=== PATIENT | female | born 1995 | race Caucasian/White ===

== ENCOUNTER 2016-07-24 21:09 | Emergency (ER) | payer OTHER ==
--- NOTE | 2016-07-24 21:38 | ERPHSYRPT ---
- History of Present Illness Time Seen by Provider: 07/24/16 21:20 Historian: patient Exam Limitations: clinical condition Patient Subjective Stated Complaint: Pt sts 2 positive tests at home, LMP 06/04/16, . Sts light pink tinged discharge. Also sts pain in upper back and upper abd that is constant. Denies painful urination, burning with urianaion. Triage Nursing Assessment: Pt alert, oriented, answers all questions appropriately. Skin p/w/d, resps non-labored. Pt ambulatory to tx room, steady gait noted. Physician History: PATIENT COMPLAINS OF VAGINAL BLEEDING WHILE CLEANING HERSELF WITH TISSUE, TODAY. HAS ASSOCIATED UPPER,AND EPIGASTRIC PAINS THROUGHOUT THE DAY. DENIES NAUSEA, EMESIS OR DIARRHEA. PATIENT HAS HAD 2 POSITIVE URINE TEST. Timing/Duration: today Activities at Onset: none Abdominal Pain Onset Location: epigastric Pain Radiation: no radiation Severity of Pain-Max: moderate Severity of Pain-Current: moderate Previous symptoms: no prior history Allergies/Adverse Reactions: No Known Drug Allergies Allergy (Unverified 08/07/15 22:55) Hx Tetanus, Diphtheria Vaccination/Date Given: Yes Hx Influenza Vaccination/Date Given: Yes Hx Pneumococcal Vaccination/Date Given: No - Review of Systems Constitutional: No Fever, No Chills Eyes: No Symptoms Ears, Nose, & Throat: No Symptoms Respiratory: No Symptoms, No Cough, No Dyspnea Cardiac: No Symptoms, No Chest Pain, No Edema, No Syncope Abdominal/Gastrointestinal: Abdominal Pain, No Nausea, No Vomiting, No Diarrhea Genitourinary Symptoms: No Dysuria Musculoskeletal: No Symptoms, No Back Pain, No Neck Pain Skin: No Symptoms, No Rash Neurological: No Symptoms, No Dizziness, No Focal Weakness, No Sensory Changes Psychological: No Symptoms Endocrine: No Symptoms All Other Systems: Reviewed and Negative - Past Medical History Pertinent Past Medical History: Yes Psycho-Social History: Anxiety, Depression - Past Surgical History Past Surgical History: Yes Other Surgical History: stented kindney unknown which at [facility] [place] - Social History Smoking Status: Never smoker Exposure to second hand smoke: No Drug Use: none Patient Lives Alone: No - Female History Hx Last Menstrual Period: 06/04/16 - Nursing Vital Signs Nursing Vital Signs: Initial Vital Signs Temperature 97.8 F Pulse Rate 117 Respiratory Rate 18 Blood Pressure [Right Arm] 109/65 Pain Intensity 6 - Physical Exam General Appearance: no apparent distress, alert Eye Exam: PERRL/EOMI, eyes nml inspection Ears, Nose, Throat Exam: normal ENT inspection, pharynx normal, moist mucous membranes Neck Exam: normal inspection, non-tender, supple, full range of motion Respiratory Exam: normal breath sounds, lungs clear, No respiratory distress Cardiovascular Exam: regular rate/rhythm, normal heart sounds Gastrointestinal/Abdomen Exam: soft, normal bowel sounds, tenderness (SUPERIOR EPIGASTRIC TENDERNESS), No mass Back Exam: normal inspection, normal range of motion, No CVA tenderness, No vertebral tenderness Extremity Exam: normal inspection, normal range of motion, pelvis stable Neurologic Exam: alert, oriented x 3, cooperative, normal mood/affect, nml cerebellar function, sensation nml, No motor deficits Skin Exam: normal color, warm, dry SpO2 Interpretation: normal SpO2: 98 Oxygen Delivery: Room Air - CT Exams Abdomen/Pelvis CT Interpretation: Tele-radiologist Report (NO ACUTE FINDINGS) Ordered Tests: Active Orders 24 hr Category Date Time Status IV Insertion STAT Care 07/24/16 22:08 Active ABDOMEN AND PELVIS W CONTRAST [CT] Stat Exams 07/24/16 23:09 Taken AMYLASE Stat Lab 07/24/16 22:03 Completed CBC W DIFF Stat Lab 07/24/16 22:03 Completed CMP Stat Lab 07/24/16 22:03 Completed HCG, Quantitative (Inhouse) Stat Lab 07/24/16 22:03 Completed LIPASE Stat Lab 07/24/16 22:03 Completed UA W/ MICROSCOPIC Stat Lab 07/24/16 22:03 Completed Medication Summary Generic Name Dose Route Start Last Admin Trade Name Freq PRN Reason Stop Dose Admin Sodium Chloride 1,000 mls @ 250 mls/hr 07/24/16 23:15 07/24/16 23:21 Sodium Chloride 0.9% 1000 Ml IV 08/23/16 23:14 250 mls/hr .Q4H KIM Administration Lab/Rad Data: Laboratory Result Diagrams 07/24/16 22:03 07/24/16 22:03 Laboratory Results 07/24/16 07/24/16 07/24/16 Range/Units 22:03 22:03 22:03 WBC (4.0-10.5) K/mm3 RBC (4.1-5.4) M/mm3 Hgb (12.0-16.0) gm/dl Hct (35-47) % MCV (78-100) fl MCH (26-32) pg MCHC (32-36) g/dl RDW (11.5-14.0) % Plt Count (150-450) K/mm3 MPV (6-9.5) fl Gran % (36.0-66.0) % Lymphocytes % (24.0-44.0) % Monocytes % (0.0-12.0) % Eosinophils % (0.00-5.0) % Basophils % (0.0-0.4) % Basophils # (0-0.4) Sodium 139 (136-145) mEq/L Potassium 3.6 (3.5-5.1) mEq/L Chloride 103 (98-107) mEq/L Carbon Dioxide 23.9 (21-32) mEq/L Anion Gap 15.6 H (5-15) MEQ/L BUN 10 (9-20) mg/dL Creatinine 1.12 (0.55-1.30) mg/dl Estimated GFR > 60 ML/MIN Glucose 153 H (70-110) MG/DL Calcium 9.0 (8.5-10.1) mg/dL Total Bilirubin 0.1 L (0.2-1.0) mg/dL AST 4 L (15-37) U/L ALT 33 (12-78) U/L Alkaline Phosphatase 93 (46-116) U/L Serum Total Protein 7.9 (6.4-8.2) gm/dL Albumin 3.6 (3.4-5.0) g/dL Amylase 43 (25-115) U/L Lipase 172 (73-393) U/L Beta HCG, Quant < 1.0 (0-6) IU/L Ur Collection Type CLEAN CATCH Urine Color YELLOW (YELLOW) Urine Appearance CLEAR (CLEAR) Urine pH 7.0 (5-6) Ur Specific Fielding 1.020 (1.005-1.025) Urine Protein NEGATIVE (Negative) Urine Glucose (UA) NEGATIVE (NEGATIVE) mg/dL Urine Ketones NEGATIVE (NEGATIVE) Urine Nitrite NEGATIVE (NEGATIVE) Urine Bilirubin NEGATIVE (NEGATIVE) Urine Urobilinogen 0.2 (0-1) mg/dL Urine WBC (Auto) NEGATIVE (NEGATIVE) Urine RBC (Auto) LARGE (0-5) Anthony/ul Urine Microscopic RBC 25-50 (0-2) /HPF Ur Epithelial Cells FEW (FEW) /HPF Urine Bacteria RARE (NEGATIVE) /HPF Specimen Received [id number] 07/24/16 Range/Units 22:03 WBC 14.0 H (4.0-10.5) K/mm3 RBC 4.77 (4.1-5.4) M/mm3 Hgb 12.6 (12.0-16.0) gm/dl Hct 39.6 (35-47) % MCV 83.0 (78-100) fl MCH 26.4 (26-32) pg MCHC 31.8 L (32-36) g/dl RDW 13.9 (11.5-14.0) % Plt Count 407 (150-450) K/mm3 MPV 8.7 (6-9.5) fl Gran % 60.4 (36.0-66.0) % Lymphocytes % 31.9 (24.0-44.0) % Monocytes % 5.9 (0.0-12.0) % Eosinophils % 1.6 (0.00-5.0) % Basophils % 0.2 (0.0-0.4) % Basophils # 0.03 (0-0.4) Sodium (136-145) mEq/L Potassium (3.5-5.1) mEq/L Chloride (98-107) mEq/L Carbon Dioxide (21-32) mEq/L Anion Gap (5-15) MEQ/L BUN (9-20) mg/dL Creatinine (0.55-1.30) mg/dl Estimated GFR ML/MIN Glucose (70-110) MG/DL Calcium (8.5-10.1) mg/dL Total Bilirubin (0.2-1.0) mg/dL AST (15-37) U/L ALT (12-78) U/L Alkaline Phosphatase (46-116) U/L Serum Total Protein (6.4-8.2) gm/dL Albumin (3.4-5.0) g/dL Amylase (25-115) U/L Lipase (73-393) U/L Beta HCG, Quant (0-6) IU/L Ur Collection Type Urine Color (YELLOW) Urine Appearance (CLEAR) Urine pH (5-6) Ur Specific Fielding (1.005-1.025) Urine Protein (Negative) Urine Glucose (UA) (NEGATIVE) mg/dL Urine Ketones (NEGATIVE) Urine Nitrite (NEGATIVE) Urine Bilirubin (NEGATIVE) Urine Urobilinogen (0-1) mg/dL Urine WBC (Auto) (NEGATIVE) Urine RBC (Auto) (0-5) Anthony/ul Urine Microscopic RBC (0-2) /HPF Ur Epithelial Cells (FEW) /HPF Urine Bacteria (NEGATIVE) /HPF Specimen Received - Progress Counseled pt/family regarding: lab results, diagnosis, need for follow-up - Departure Time of Disposition: 01:05 Departure Disposition: Home Clinical Impression: ABDOMINAL PAIN Condition: Stable Critical Care Time: No Additional Instructions: PEPCID 20MG TWICE DAILY FOR 2 WEEKS. CONSULT YOUR FAMILY PHYSICIAN FOR EVALUATION IN 1 WEEK. Prescriptions: Famotidine 20 mg [Pepcid 20 MG] 20 mg PO BID #30 tablet
[2016-07-24 22:06] LABS: BASOPHIL % 0.2 % (0.0-0.4); Eosinophil % 1.6 % (0.00-5.0); Granulocytes % 60.4 % (36.0-66.0); Lymphocytes % 31.9 % (24.0-44.0); Mean Corpuscular Hemoglobin 26.4 pg (26-32); Mean Platelet Volume 8.7 fl (6-9.5); Monocytes % 5.9 % (0.0-12.0); Platelet Count 407 K/mm3 (150-450); Red Blood Count 4.77 M/mm3 (4.1-5.4); Red Cell Distribution Width 13.9 % (11.5-14.0)
[2016-07-24 22:24] LABS: COMPLETE URINE MICROSCOPIC? YES; Collection Type CLEAN CATCH
[2016-07-24 22:25] LABS: Bacteria RARE /HPF (NEGATIVE); Epithelial Cells FEW /HPF (FEW)
[2016-07-24 22:33] LABS: ALBUMIN 3.6 g/dL (3.4-5.0); ALKALINE PHOSPHATASE 93 U/L (46-116); ANION GAP 15.6 MEQ/L (5-15); BILIRUBIN,TOTAL 0.1 mg/dL (0.2-1.0); BLOOD UREA NITROGEN 10 mg/dL (9-20); CHLORIDE 103 mEq/L (98-107); Carbon Dioxide 23.9 mEq/L (21-32); Glucose 153 MG/DL (70-110); Potassium 3.6 mEq/L (3.5-5.1); SGOT/AST 4 U/L (15-37); SGPT/ALT 33 U/L (12-78); SODIUM 139 mEq/L (136-145); Total Protein 7.9 gm/dL (6.4-8.2)
[2016-07-24 22:57] LABS: LIPASE 172 U/L (73-393)
[2016-07-24] MEDS ORDERED: Sodium Chloride 0.9% 1000 ML 1,000 ML IV SCH (23:15)
[2016-07-24] MEDS ORDERED: Sodium Chloride 0.9% 1000 ML 1,000 ML ONE (23:19)
[2016-07-25 01:33] VITALS: BP 112/78; PULSE 108; O2SAT 100
--- NOTE | 2016-07-25 09:16 | XRAY ---
Indication: Abdominal pain. Leukocytosis. Congenitally small left kidney. Multiple contiguous axial images obtained through the abdomen and pelvis using 80 cc Isovue 370 contrast only. Comparison: None Lung bases essentially clear. Heart is not enlarged. Stomach is distended with food. Noncontrasted bowel loops appear nonobstructed. Normal appendix. Tiny cul-de-sac fluid presumed from ruptured/leaking cyst. No walled off fluid collection or free air. Left kidney is slightly smaller than the right. Remaining liver, gallbladder, pancreas, spleen, adrenal glands, kidneys, ureters, bladder, uterus, and aorta appear normal in CT appearance and attenuation. No pathologic retroperitoneal lymphadenopathy. Osseous structures intact. Impression: 1. Tiny cul-de-sac fluid presumed from ruptured/leaking cyst. 2. No acute intra-abdominal/pelvic abnormalities. Comment: Preliminary interpretation was made by [facility]. No critical discrepancy. CT DI 28.13
== END 2016-07-25 01:35 | disposition home or self-care (01) ==
LOC: ED 21:09
DX: R10.9 Unspecified abdominal pain (principal); R10.13 Epigastric pain
CPT/HCPCS: 36000; 36415; 74177; 80053; 81000; 82150; 83690; 84702; 85025; 96360; 96361; 99284

== ENCOUNTER 2016-08-08 22:37 | Emergency (ER) | payer OTHER ==
--- NOTE | 2016-08-08 23:06 | ERPHSYRPT ---
- History of Present Illness Time Seen by Provider: 08/08/16 22:55 Source: patient Exam Limitations: no limitations Patient Subjective Stated Complaint: pt states she woke up with shortness of breath. states she has also been having some nonradiating midsternal chest pain that goes thru to her back. Triage Nursing Assessment: pt alert and oriented, answers questions approp. pt ambualtory with steady gait ntoed. respirations labored and shallow upon arrival. respirations 20 and normal depth at this time. lungs cta. sinus tach on monitor. heart rate 87 on monitor. Physician History: 20-year-old white female arrives with complaint of substernal chest pain described as sharp worse with breathing associated with shortness of breath onset for 30 minutes occurred when patient woke up from sleep. No nausea no vomiting no abdominal pain patient does state that she has not had a period in 4 months. Past medical history shows anxiety and depression in the old chart patient denies this. Patient states she had a stented kidney has an infant for ureteral reflux. Timing/Duration: today (30 minutes ago) Severity: moderate Modifying Factors: Improves With: nothing Associated Symptoms: shortness of breath, chest pain (sharp pain radiating to back worse with deep breathing), No nausea, No vomiting, No abdominal pain, No heartburn, No diaphoresis, No cough, No chills Allergies/Adverse Reactions: No Known Drug Allergies Allergy (Verified 08/08/16 22:53) Home Medications: No Home Meds 1 ea UD 08/08/16 [History] Hx Tetanus, Diphtheria Vaccination/Date Given: Yes Hx Influenza Vaccination/Date Given: Yes Hx Pneumococcal Vaccination/Date Given: No Immunizations Up to Date: Yes - Review of Systems Constitutional: No Fever, No Chills Eyes: No Symptoms Ears, Nose, & Throat: No Symptoms Respiratory: Dyspnea, Other (pain sternal area with deep breathing), No Cough, No Cyanosis, No Dyspnea on Exertion (MAXWELL), No Stridor, No Wheezing Cardiac: Chest Pain (Pain sternal area radiating to back with deep breathing), No Edema, No Palpitations, No Orthopnea, No PND, No Other Abdominal/Gastrointestinal: No Abdominal Pain, No Nausea, No Vomiting, No Diarrhea Genitourinary Symptoms: No Dysuria Musculoskeletal: No Back Pain, No Neck Pain Skin: No Rash Neurological: No Dizziness, No Focal Weakness, No Sensory Changes Psychological: No Symptoms Endocrine: No Symptoms All Other Systems: Reviewed and Negative - Past Medical History Pertinent Past Medical History: Yes Psycho-Social History: Anxiety, Depression - Past Surgical History Past Surgical History: Yes Other Surgical History: stented kindney unknown which at infancy - Social History Smoking Status: Never smoker Exposure to second hand smoke: Yes Drug Use: none Patient Lives Alone: No - Female History Hx Last Menstrual Period: recent miscarriage - Nursing Vital Signs Nursing Vital Signs: Initial Vital Signs Temperature 97.3 F Temperature Source Oral Pulse Rate 89 Respiratory Rate 21 Blood Pressure [] 114/61 Pain Intensity 4 - Physical Exam General Appearance: no apparent distress, alert Eye Exam: PERRL/EOMI, eyes nml inspection Ears, Nose, Throat Exam: normal ENT inspection, TMs normal, pharynx normal, moist mucous membranes Neck Exam: normal inspection, non-tender, supple, full range of motion Respiratory Exam: lungs clear, airway intact, other (patient appears to be breathing normally when talking and during interview however when patient asked to take she takes several intermittent small breaths during inspiration states she has pain in her sternal region), No respiratory distress, No diminished breath sounds, No accessory muscle use, No prolonged expirations, No crackles/ rales, No rhonchi, No wheezing, No stridor, No pleural rub Cardiovascular Exam: regular rate/rhythm, normal heart sounds, normal peripheral pulses Gastrointestinal/Abdomen Exam: soft, normal bowel sounds, No tenderness, No mass Back Exam: normal inspection, normal range of motion, No CVA tenderness, No vertebral tenderness Extremity Exam: normal inspection, normal range of motion, pelvis stable Neurologic Exam: alert, oriented x 3, cooperative, normal mood/affect, nml cerebellar function, nml station & gait, sensation nml, No motor deficits Skin Exam: normal color, warm, dry, No rash Lymphatic Exam: No adenopathy SpO2 Interpretation: normal (99%) SpO2: 99 Oxygen Delivery: Room Air - Course Nursing assessment & vital signs reviewed: Yes EKG Interpreted by Me: RATE (105 bpm), Sinus Tach, NORMAL AXIS, Other (EKG, sinus tachycardia, 105 beats per minute, normal axis, RSV are prime in leads f and aVL, no acute ST or T wave changes n no acute changes as compared toApril 2015) - Radiology Exams Chest X-ray Interpretation: Interpreted by me, Negative, No Pneumonia, No Pneumothorax Ordered Tests: Active Orders 24 hr Category Date Time Status House Calls Nurse STAT Care 08/08/16 22:59 Active EKG-ER Only STAT Care 08/08/16 22:59 Active IV Insertion STAT Care 08/08/16 23:01 Active Pulse Oximetry (ED) STAT Care 08/08/16 22:59 Active Re-Check Vital Signs STAT Care 08/08/16 22:59 Active CHEST 1 VIEW (PORTABLE) Stat Exams 08/08/16 23:00 Taken AMYLASE Stat Lab 08/08/16 22:55 Completed CBC W DIFF Stat Lab 08/08/16 22:55 Completed CMP Stat Lab 08/08/16 22:55 Completed D-DIMER QUANTITATION Stat Lab 08/08/16 22:55 Completed HCG QUALITATIVE,SERUM Stat Lab 08/08/16 22:55 Completed LIPASE Stat Lab 08/08/16 22:55 Completed Manual Differential NC Stat Lab 08/08/16 22:55 Completed TROPONIN Q3H Lab 08/08/16 23:00 Completed TROPONIN Q3H Lab 08/09/16 02:00 Ordered TROPONIN Q3H Lab 08/09/16 05:00 Ordered TROPONIN Q3H Lab 08/09/16 08:00 Ordered TROPONIN Q3H Lab 08/09/16 11:00 Ordered Lab/Rad Data: Laboratory Result Diagrams 08/08/16 22:55 08/08/16 22:55 Laboratory Results 08/08/16 08/08/16 08/08/16 Range/Units 23:00 22:55 22:55 WBC (4.0-10.5) K/mm3 RBC (4.1-5.4) M/mm3 Hgb (12.0-16.0) gm/dl Hct (35-47) % MCV (78-100) fl MCH (26-32) pg MCHC (32-36) g/dl RDW (11.5-14.0) % Plt Count (150-450) K/mm3 MPV (6-9.5) fl Segmented Neutrophils (36.0-66.0) % Band Neutrophils (0.0-2.0) % Lymphocytes (Manual) (24-44) % Monocytes (Manual) (0.0-12.0) % Eosinophils (Manual) (0.00-3.0) % Differential Comment Platelet Estimate (NORMAL) D-Dimer 0.250 (0.00-0.49) mg/L Sodium (136-145) mEq/L Potassium (3.5-5.1) mEq/L Chloride (98-107) mEq/L Carbon Dioxide (21-32) mEq/L Anion Gap (5-15) MEQ/L BUN (9-20) mg/dL Creatinine (0.55-1.30) mg/dl Estimated GFR ML/MIN Glucose (70-110) MG/DL Calcium (8.5-10.1) mg/dL Total Bilirubin (0.2-1.0) mg/dL AST (15-37) U/L ALT (12-78) U/L Alkaline Phosphatase (46-116) U/L Troponin I < 0.017 (0.000-0.056) ng/ml Serum Total Protein (6.4-8.2) gm/dL Albumin (3.4-5.0) g/dL Amylase (25-115) U/L Lipase (73-393) U/L Serum , Qual NEGATIVE (Negative) 08/08/16 08/08/16 Range/Units 22:55 22:55 WBC 15.5 H (4.0-10.5) K/mm3 RBC 4.67 (4.1-5.4) M/mm3 Hgb 12.4 (12.0-16.0) gm/dl Hct 38.3 (35-47) % MCV 82.0 (78-100) fl MCH 26.6 (26-32) pg MCHC 32.4 (32-36) g/dl RDW 13.8 (11.5-14.0) % Plt Count 426 (150-450) K/mm3 MPV 8.9 (6-9.5) fl Segmented Neutrophils 46 (36.0-66.0) % Band Neutrophils 2 (0.0-2.0) % Lymphocytes (Manual) 47 H (24-44) % Monocytes (Manual) 4 (0.0-12.0) % Eosinophils (Manual) 1 (0.00-3.0) % Differential Comment NORMAL Platelet Estimate NORMAL (NORMAL) D-Dimer (0.00-0.49) mg/L Sodium 142 (136-145) mEq/L Potassium 3.2 L (3.5-5.1) mEq/L Chloride 103 (98-107) mEq/L Carbon Dioxide 24.5 (21-32) mEq/L Anion Gap 17.4 H (5-15) MEQ/L BUN 11 (9-20) mg/dL Creatinine 1.34 H (0.55-1.30) mg/dl Estimated GFR 54 ML/MIN Glucose 135 H (70-110) MG/DL Calcium 9.5 (8.5-10.1) mg/dL Total Bilirubin 0.2 (0.2-1.0) mg/dL AST 16 (15-37) U/L ALT 30 (12-78) U/L Alkaline Phosphatase 90 (46-116) U/L Troponin I (0.000-0.056) ng/ml Serum Total Protein 7.7 (6.4-8.2) gm/dL Albumin 3.6 (3.4-5.0) g/dL Amylase 41 (25-115) U/L Lipase 157 (73-393) U/L Serum , Qual (Negative) - Progress Progress: improved Progress Note: 08/09/16 00:28 This is a 20-year-old white female she arrives with complaint of sharp anterior sternal pain worse with breathing symptoms since approximately 30 minutes prior to arrival. This began while the patient was laying down. Patient has a normal EKG troponin within normal limits white count slightly elevated chest x-ray unremarkable chemistry is unremarkable. Patient was concerned that she might be she states she had not had a period since 4 months. Patient appeared to be stable her pain appeared to be pleuritic I told the patient that we would want to see her hCG prior to any of nonsteroidals on this patient. HCG is negative patient currently states she has occasional intermittent pain in her anterior chest she has been stable blood pressure has been stable EKG no acute changes (chronic interventricular conduction delay which is not changed from previous no acute ST or T wave changes. I've come back and told the patient her findings have offered to give the patient Toradol for pain she states that she would prefer to go home and take Advil or Aleve at home. Will discharge patient please note patient was offered repeat troponin 3 hours after last draw she declined this stated that she did not want to wait for this I told her that this would be advisable to completely rule out cardiac etiology of her pain. .. 08/09/16 00:31 - Departure Time of Disposition: 00:30 Departure Disposition: Home Clinical Impression: Non-cardiac chest pain, Pleurisy Condition: Fair Critical Care Time: No Instructions: Chronic Obstructive Pulmonary Disease Additional Instructions: Return home. Plenty of fluids. Advil [id number] every 6 hours as needed for pain. Follow-up with your family doctor. Return for acute distress or for severe symptoms. Your x-rays have been preliminarily read they will be reread tomorrow will be contacted if any discrepancies are noted
[2016-08-08 23:12] LABS: Mean Corpuscular Hemoglobin 26.6 pg (26-32); Mean Platelet Volume 8.9 fl (6-9.5); Platelet Count 426 K/mm3 (150-450); Red Blood Count 4.67 M/mm3 (4.1-5.4); Red Cell Distribution Width 13.8 % (11.5-14.0); White Blood Count 15.5 K/mm3 (4.0-10.5)
[2016-08-08 23:36] LABS: ALBUMIN 3.6 g/dL (3.4-5.0); ANION GAP 17.4 MEQ/L (5-15); BILIRUBIN,TOTAL 0.2 mg/dL (0.2-1.0); Carbon Dioxide 24.5 mEq/L (21-32); Potassium 3.2 mEq/L (3.5-5.1); Total Protein 7.7 gm/dL (6.4-8.2)
[2016-08-09 00:20] LABS: BAND 2 % (0.0-2.0); Eosinophil 1 % (0.00-3.0); Platelet Estimate NORMAL (NORMAL); Total Cells Counted 100
[2016-08-09 00:42] VITALS: BP 102/65; PULSE 77; O2SAT 96
--- NOTE | 2016-08-09 09:01 | XRAY ---
Indication: Chest pain. Comparison: August 12, 2015. Portable chest again demonstrates normal heart, lungs, and bony thorax.
== END 2016-08-09 00:43 | disposition home or self-care (01) ==
LOC: ED 22:37
DX: R07.89 Other chest pain (principal); R09.1 Pleurisy; R06.02 Shortness of breath
CPT/HCPCS: 36000; 36415; 71010; 80053; 82150; 83690; 84484; 84703; 85025; 85379; 93005; 93041; 99284

== ENCOUNTER 2018-01-02 17:01 | Observation (INO) | payer OTHER ==
--- NOTE | 2018-01-02 18:19 | ERPHSYRPT ---
- History of Present Illness Source: patient, family Exam Limitations: no limitations Patient Subjective Stated Complaint: pt was dx with bronchitis on sunday and was given antibotic and steriod, Triage Nursing Assessment: pt co pain to center of chest, sob, pain worse with a deep breath, pt is coughing up pink tinged sputum since sunday. no fever today , Timing/Duration: week(s) (1), gradual onset, worse Cough Quality/Degree: productive cough, sputum Possible Cause: no prior episodes Modifying Factors: Improves With: albuterol inhaler, coughing, deep breath Associated Symptoms: fever, chills, cough, shortness of breath, wheezing, No nasal congestion, No sore throat Hx Tetanus, Diphtheria Vaccination/Date Given: Yes Hx Influenza Vaccination/Date Given: Yes Hx Pneumococcal Vaccination/Date Given: No Immunizations Up to Date: Yes <ELLI LEDESMA - Last Filed: 01/02/18 18:58> <EMILY CHAVIRA - Last Filed: 01/02/18 22:20> - History of Present Illness Time Seen by Provider: 01/02/18 18:18 Physician History: The patient is a 22-year-old obese female with her mother complaining that she has a cough and chest pain with cough and breathing for about one week. She was seen at [facility] on Sunday (3 days ago) for the same complaint. I have reviewed the notes and [facility]. The diagnosis was bronchitis. She was given levofloxacin 700 mg daily, albuterol inhaler, and prednisone 20 mg 2 times a day for 5 days. She had been wheezing earlier but now states her wheezing has improved. She feels like she has had a fever but did not take her temperature. Before going to [place], she had pink tinged sputum with coughing. The sputum is now normal color. She states that at times she has difficulty breathing. She has not received her influenza vaccination this year. She is on oral control. Her past medical history is significant for an atretic kidney as a . She does not smoke nor drink. (ELLI LEDESMA) Allergies/Adverse Reactions: No Known Drug Allergies Allergy (Verified 01/02/18 17:08) Home Medications: No Home Meds [No Home Meds] 1 ea UD 08/08/16 [History] Norgestimate-Ethinyl Estradiol [Tri-Sprintec] 1 tab DAILY 01/02/18 [History] Prednisone 20 mg [Deltasone 20 mg] 20 mg DAILY 01/02/18 [History] levoFLOXacin [Levofloxacin] 750 mg DAILY 01/02/18 [History] - Review of Systems Constitutional: No Fever, No Chills Eyes: No Symptoms Ears, Nose, & Throat: No Symptoms Respiratory: Cough, Dyspnea, Wheezing Cardiac: Chest Pain Abdominal/Gastrointestinal: No Abdominal Pain, No Nausea, No Vomiting, No Diarrhea Genitourinary Symptoms: No Dysuria Musculoskeletal: No Back Pain, No Neck Pain Skin: No Rash Neurological: No Dizziness, No Focal Weakness, No Sensory Changes Psychological: No Symptoms Endocrine: No Symptoms Hematologic/Lymphatic: No Symptoms Immunological/Allergic: No Symptoms All Other Systems: Reviewed and Negative <ELLI LEDESMA - Last Filed: 01/02/18 18:58> - Past Medical History Pertinent Past Medical History: Yes Respiratory History: Bronchitis Psycho-Social History: Anxiety, Depression - Past Surgical History Past Surgical History: Yes Other Surgical History: kidney surgery - Social History Smoking Status: Never smoker Exposure to second hand smoke: No Drug Use: none Patient Lives Alone: No - Female History Hx Last Menstrual Period: 2 days ago Hx Now: No <ELLI LEDESMA - Last Filed: 01/02/18 18:58> - Physical Exam General Appearance: no apparent distress, alert Eye Exam: PERRL/EOMI, eyes nml inspection Ears, Nose, Throat Exam: normal ENT inspection, TMs normal, pharynx normal, moist mucous membranes Neck Exam: normal inspection, non-tender, supple, full range of motion Respiratory Exam: rhonchi, No prolonged expirations, No wheezing Cardiovascular Exam: normal heart sounds, tachycardia Gastrointestinal/Abdomen Exam: soft, No tenderness Pelvic Exam: not done Rectal Exam: not done Back Exam: normal inspection, No CVA tenderness, No vertebral tenderness Extremity Exam: normal inspection, normal range of motion Neurologic Exam: alert, oriented x 3, cooperative, normal mood/affect, sensation nml, No motor deficits Skin Exam: normal color, warm, dry, No rash Lymphatic Exam: No adenopathy SpO2 Interpretation: normal SpO2: 96 Oxygen Delivery: Room Air <ELLI LEDESMA - Last Filed: 01/02/18 18:58> - Nursing Vital Signs Nursing Vital Signs: Initial Vital Signs Temperature 98.3 F 01/02/18 17:02 Pulse Rate 100 H 01/02/18 17:02 Respiratory Rate 16 01/02/18 17:02 Blood Pressure 143/108 01/02/18 17:02 O2 Sat by Pulse Oximetry 96 01/02/18 17:02 Pain Scale Pain Intensity 5 - Course EKG Interpreted by Me: RATE, Sinus Tach, NORMAL AXIS, NORMAL INTERVALS, NORMAL QRS, NORMAL ST-T <ELLI LEDESMA - Last Filed: 01/02/18 18:58> - Course Nursing assessment & vital signs reviewed: Yes EKG Interpreted by Me: Other (repeat Ek:21 PM: sinus tachycardia, unchanged , negative except rate.) - Radiology Exams Chest X-ray Interpretation: Interpreted by me, Negative <EMILY CHAVIRA - Last Filed: 01/02/18 22:20> Ordered Tests: Active Orders 24 hr Category Date Time Status Heel Coverer STAT Care 01/02/18 18:51 Active Cold Application STAT Care 01/02/18 17:41 Active EKG-ER Only STAT Care 01/02/18 18:49 Active EKG-ER Only STAT Care 01/02/18 21:02 Active IV Insertion STAT Care 01/02/18 18:49 Active Pulse Oximetry (ED) STAT Care 01/02/18 18:49 Active CHEST 2 VIEWS (PA AND LAT) Stat Exams 01/02/18 18:50 Taken CBC W DIFF Stat Lab 01/02/18 19:15 Completed CMP Stat Lab 01/02/18 19:15 Completed CULTURE,SPUTUM Stat Lab 01/02/18 18:50 Uncollected CULTURE,URINE Stat Lab 01/02/18 20:41 Received D-DIMER QUANTITATION Stat Lab 01/02/18 19:15 Completed HCG,QUALITATIVE URINE Stat Lab 01/02/18 20:41 Completed Lactic Acid Stat Lab 01/02/18 19:20 Completed Lactic Acid Stat Lab 01/02/18 22:00 Results Manual Differential NC Stat Lab 01/02/18 19:15 Completed NT PRO BNP Stat Lab 01/02/18 19:15 Completed TROPONIN Q3H Lab 01/02/18 19:15 Completed TROPONIN Q3H Lab 01/02/18 22:00 Received TROPONIN Q3H Lab 01/03/18 01:00 Ordered TROPONIN Q3H Lab 01/03/18 04:00 Ordered TROPONIN Q3H Lab 01/03/18 07:00 Ordered UA W/RFX UR CULTURE Stat Lab 01/02/18 20:41 Completed Urine Triage Profile Stat Lab 01/02/18 20:41 Completed Respiratory Nebulizer STAT RT 01/02/18 18:52 Completed Respiratory Therapy Assessment ASORD RT 01/02/18 20:32 Completed Medication Summary Discontinued Medications Generic Name Dose Route Start Last Admin Trade Name [place] PRN Reason Stop Dose Admin Albuterol Sulfate 2.5 mg 01/02/18 18:49 01/02/18 19:04 Proventil 2.5 Mg/3 Ml Neb IH 01/02/18 18:50 2.5 mg STAT ONE Administration Albuterol Sulfate Confirm 01/02/18 19:04 Proventil 2.5 Mg/3 Ml Neb Administered 01/02/18 19:05 Dose 2.5 mg IH .STK-MED ONE Fentanyl Citrate 75 mcg 01/02/18 20:18 01/02/18 20:28 Sublimaze 100 Mcg/2 Ml IV 01/02/18 20:19 Not Given STAT ONE Fentanyl Citrate Confirm 01/02/18 20:22 Sublimaze 100 Mcg/2 Ml Administered 01/02/18 20:23 Dose 100 mcg .ROUTE .STK-MED ONE Sodium Chloride 1,000 mls @ 999 mls/hr 01/02/18 20:17 01/02/18 20:24 Sodium Chloride 0.9% 1000 Ml IV 01/02/18 21:17 999 mls/hr .Q1H1M STA Administration Sodium Chloride Confirm 01/02/18 20:18 Sodium Chloride 0.9% 1000 Ml Administered 01/02/18 20:19 Dose 1,000 mls @ ud .ROUTE .STK-MED ONE Ceftriaxone Sodium/Dextrose 1 g in 50 mls @ 100 mls/hr 01/02/18 21:15 21:24 Rocephin 1 Gm-D5w 50 Ml Bag IV 01/02/18 21:44 100 ml/hr STAT STA 100 mls/hr Administration Ceftriaxone Sodium/Dextrose Confirm 01/02/18 21:19 Rocephin 1 Gm-D5w 50 Ml Bag Administered 01/02/18 21:20 Dose 1 g in 50 mls @ ud IV .STK-MED ONE Ketorolac Tromethamine 30 mg 01/02/18 18:53 01/02/18 19:04 Toradol 30 Mg Injection IV 01/02/18 18:54 30 mg STAT ONE Administration Ketorolac Tromethamine Confirm 01/02/18 19:03 Toradol 30 Mg Injection Administered 01/02/18 19:04 Dose 30 mg .ROUTE .STK-MED ONE Lorazepam 0.5 mg 01/02/18 20:49 01/02/18 21:23 Ativan 2 Mg/1 Ml Vial IV 01/02/18 20:50 0.5 mg STAT ONE Administration Lorazepam Confirm 01/02/18 21:19 Ativan 2 Mg/1 Ml Vial Administered 01/02/18 21:20 Dose 2 mg .ROUTE .STK-MED ONE Ondansetron HCl 4 mg 01/02/18 20:18 01/02/18 20:28 Zofran 4 Mg/2 Ml Vial IV 01/02/18 20:19 Not Given STAT ONE Ondansetron HCl Confirm 01/02/18 20:21 Zofran 4 Mg/2 Ml Vial Administered 01/02/18 20:22 Dose 4 mg .ROUTE .STK-MED ONE Lab/Rad Data: Laboratory Result Diagrams 01/02/18 19:15 01/02/18 19:15 Laboratory Results 01/02/18 01/02/18 01/02/18 Range/Units 22:00 20:41 20:41 WBC (4.0-10.5) K/mm3 RBC (4.1-5.4) M/mm3 Hgb (12.0-16.0) gm/dl Hct (35-47) % MCV (78-100) fl MCH (26-32) pg MCHC (32-36) g/dl RDW (11.5-14.0) % Plt Count (150-450) K/mm3 MPV (6-9.5) fl Absolute Granulocytes (1.4-6.9) D-Dimer (215-500) ng/mL Sodium (137-145) mmol/L Potassium (3.5-5.1) mmol/L Chloride (98-107) mmol/L Carbon Dioxide (22-30) mmol/L Anion Gap (5-15) MEQ/L BUN (7-17) mg/dL Creatinine (0.52-1.04) mg/dL Estimated GFR ML/MIN Glucose (74-106) mg/dL Lactic Acid 2.1 H (0.4-2.0) Calcium (8.4-10.2) mg/dL Total Bilirubin (0.2-1.3) mg/dL AST (14-36) U/L ALT (0-35) U/L Alkaline Phosphatase (38-126) U/L Troponin I (0.000-0.034) ng/mL NT-Pro-B Natriuret Pep (0-450) pg/mL Serum Total Protein (6.3-8.2) g/dL Albumin (3.5-5.0) g/dL Urine Color YELLOW (YELLOW) Urine Appearance CLOUDY (CLEAR) Urine pH 6.0 (5-6) Ur Specific Hewitt 1.028 (1.005-1.025) Urine Protein NEGATIVE (Negative) Urine Ketones NEGATIVE (NEGATIVE) Urine Blood NEGATIVE (0-5) Anthony/ul Urine Nitrite NEGATIVE (NEGATIVE) Urine Bilirubin NEGATIVE (NEGATIVE) Urine Urobilinogen NEGATIVE (0-1) mg/dL Ur Leukocyte Esterase SMALL (NEGATIVE) Urine WBC (Auto) 11-15 (0-5) /HPF Urine RBC (Auto) 3-5 (0-2) /HPF U Epithel Cells (Auto) FEW (FEW) /HPF Urine Bacteria (Auto) RARE (NEGATIVE) /HPF Urine Mucus (Auto) SLIGHT (NEGATIVE) /HPF Urine Culture Reflexed YES (NO) Urine Glucose NEGATIVE (NEGATIVE) mg/dL Urine HCG, Qual (Negative) Urine Opiates Level NEGATIVE (NEGATIVE) Ur Methadone NEGATIVE (NEGATIVE) Urine Barbiturates NEGATIVE (NEGATIVE) Ur Phencyclidine (PCP) NEGATIVE (NEGATIVE) Urine Amphetamine NEGATIVE (NEGATIVE) U Benzodiazepine Level NEGATIVE (NEGATIVE) Urine Cocaine NEGATIVE (NEGATIVE) Urine Marijuana (THC) NEGATIVE (NEGATIVE) Influenza Type A Ag (NEGATIVE) Influenza Type B Ag (NEGATIVE) RSV (PCR) (Negative) 01/02/18 01/02/18 01/02/18 Range/Units 20:41 19:20 19:15 WBC (4.0-10.5) K/mm3 RBC (4.1-5.4) M/mm3 Hgb (12.0-16.0) gm/dl Hct (35-47) % MCV (78-100) fl MCH (26-32) pg MCHC (32-36) g/dl RDW (11.5-14.0) % Plt Count (150-450) K/mm3 MPV (6-9.5) fl Absolute Granulocytes (1.4-6.9) D-Dimer (215-500) ng/mL Sodium (137-145) mmol/L Potassium (3.5-5.1) mmol/L Chloride (98-107) mmol/L Carbon Dioxide (22-30) mmol/L Anion Gap (5-15) MEQ/L BUN (7-17) mg/dL Creatinine (0.52-1.04) mg/dL Estimated GFR ML/MIN Glucose (74-106) mg/dL Lactic Acid 2.5 H (0.4-2.0) Calcium (8.4-10.2) mg/dL Total Bilirubin (0.2-1.3) mg/dL AST (14-36) U/L ALT (0-35) U/L Alkaline Phosphatase (38-126) U/L Troponin I 0.018 (0.000-0.034) ng/mL NT-Pro-B Natriuret Pep (0-450) pg/mL Serum Total Protein (6.3-8.2) g/dL Albumin (3.5-5.0) g/dL Urine Color (YELLOW) Urine Appearance (CLEAR) Urine pH (5-6) Ur Specific Hewitt (1.005-1.025) Urine Protein (Negative) Urine Ketones (NEGATIVE) Urine Blood (0-5) Anthony/ul Urine Nitrite (NEGATIVE) Urine Bilirubin (NEGATIVE) Urine Urobilinogen (0-1) mg/dL Ur Leukocyte Esterase (NEGATIVE) Urine WBC (Auto) (0-5) /HPF Urine RBC (Auto) (0-2) /HPF U Epithel Cells (Auto) (FEW) /HPF Urine Bacteria (Auto) (NEGATIVE) /HPF Urine Mucus (Auto) (NEGATIVE) /HPF Urine Culture Reflexed (NO) Urine Glucose (NEGATIVE) mg/dL Urine HCG, Qual NEGATIVE (Negative) Urine Opiates Level (NEGATIVE) Ur Methadone (NEGATIVE) Urine Barbiturates (NEGATIVE) Ur Phencyclidine (PCP) (NEGATIVE) Urine Amphetamine (NEGATIVE) U Benzodiazepine Level (NEGATIVE) Urine Cocaine (NEGATIVE) Urine Marijuana (THC) (NEGATIVE) Influenza Type A Ag (NEGATIVE) Influenza Type B Ag (NEGATIVE) RSV (PCR) (Negative) 01/02/18 01/02/18 01/02/18 Range/Units 19:15 19:15 19:15 WBC 25.8 H* (4.0-10.5) K/mm3 RBC 5.36 (4.1-5.4) M/mm3 Hgb 14.2 (12.0-16.0) gm/dl Hct 43.8 (35-47) % MCV 81.7 (78-100) fl MCH 26.5 (26-32) pg MCHC 32.4 (32-36) g/dl RDW 14.5 H (11.5-14.0) % Plt Count 511 H (150-450) K/mm3 MPV 9.1 (6-9.5) fl Absolute Granulocytes 20.58 H (1.4-6.9) D-Dimer < 215 L (215-500) ng/mL Sodium 139 (137-145) mmol/L Potassium 3.9 (3.5-5.1) mmol/L Chloride 98 (98-107) mmol/L Carbon Dioxide 28 (22-30) mmol/L Anion Gap 16.8 H (5-15) MEQ/L BUN 21 H (7-17) mg/dL Creatinine 0.87 (0.52-1.04) mg/dL Estimated GFR > 60.0 ML/MIN Glucose 165 H (74-106) mg/dL Lactic Acid (0.4-2.0) Calcium 9.7 (8.4-10.2) mg/dL Total Bilirubin 0.20 (0.2-1.3) mg/dL AST 29 (14-36) U/L ALT 36 H (0-35) U/L Alkaline Phosphatase 87 (38-126) U/L Troponin I (0.000-0.034) ng/mL NT-Pro-B Natriuret Pep 93.1 (0-450) pg/mL Serum Total Protein 7.8 (6.3-8.2) g/dL Albumin 4.6 (3.5-5.0) g/dL Urine Color (YELLOW) Urine Appearance (CLEAR) Urine pH (5-6) Ur Specific Hewitt (1.005-1.025) Urine Protein (Negative) Urine Ketones (NEGATIVE) Urine Blood (0-5) Anthony/ul Urine Nitrite (NEGATIVE) Urine Bilirubin (NEGATIVE) Urine Urobilinogen (0-1) mg/dL Ur Leukocyte Esterase (NEGATIVE) Urine WBC (Auto) (0-5) /HPF Urine RBC (Auto) (0-2) /HPF U Epithel Cells (Auto) (FEW) /HPF Urine Bacteria (Auto) (NEGATIVE) /HPF Urine Mucus (Auto) (NEGATIVE) /HPF Urine Culture Reflexed (NO) Urine Glucose (NEGATIVE) mg/dL Urine HCG, Qual (Negative) Urine Opiates Level (NEGATIVE) Ur Methadone (NEGATIVE) Urine Barbiturates (NEGATIVE) Ur Phencyclidine (PCP) (NEGATIVE) Urine Amphetamine (NEGATIVE) U Benzodiazepine Level (NEGATIVE) Urine Cocaine (NEGATIVE) Urine Marijuana (THC) (NEGATIVE) Influenza Type A Ag (NEGATIVE) Influenza Type B Ag (NEGATIVE) RSV (PCR) (Negative) 01/02/18 Range/Units 19:05 WBC (4.0-10.5) K/mm3 RBC (4.1-5.4) M/mm3 Hgb (12.0-16.0) gm/dl Hct (35-47) % MCV (78-100) fl MCH (26-32) pg MCHC (32-36) g/dl RDW (11.5-14.0) % Plt Count (150-450) K/mm3 MPV (6-9.5) fl Absolute Granulocytes (1.4-6.9) D-Dimer (215-500) ng/mL Sodium (137-145) mmol/L Potassium (3.5-5.1) mmol/L Chloride (98-107) mmol/L Carbon Dioxide (22-30) mmol/L Anion Gap (5-15) MEQ/L BUN (7-17) mg/dL Creatinine (0.52-1.04) mg/dL Estimated GFR ML/MIN Glucose (74-106) mg/dL Lactic Acid (0.4-2.0) Calcium (8.4-10.2) mg/dL Total Bilirubin (0.2-1.3) mg/dL AST (14-36) U/L ALT (0-35) U/L Alkaline Phosphatase (38-126) U/L Troponin I (0.000-0.034) ng/mL NT-Pro-B Natriuret Pep (0-450) pg/mL Serum Total Protein (6.3-8.2) g/dL Albumin (3.5-5.0) g/dL Urine Color (YELLOW) Urine Appearance (CLEAR) Urine pH (5-6) Ur Specific Hewitt (1.005-1.025) Urine Protein (Negative) Urine Ketones (NEGATIVE) Urine Blood (0-5) Anthony/ul Urine Nitrite (NEGATIVE) Urine Bilirubin (NEGATIVE) Urine Urobilinogen (0-1) mg/dL Ur Leukocyte Esterase (NEGATIVE) Urine WBC (Auto) (0-5) /HPF Urine RBC (Auto) (0-2) /HPF U Epithel Cells (Auto) (FEW) /HPF Urine Bacteria (Auto) (NEGATIVE) /HPF Urine Mucus (Auto) (NEGATIVE) /HPF Urine Culture Reflexed (NO) Urine Glucose (NEGATIVE) mg/dL Urine HCG, Qual (Negative) Urine Opiates Level (NEGATIVE) Ur Methadone (NEGATIVE) Urine Barbiturates (NEGATIVE) Ur Phencyclidine (PCP) (NEGATIVE) Urine Amphetamine (NEGATIVE) U Benzodiazepine Level (NEGATIVE) Urine Cocaine (NEGATIVE) Urine Marijuana (THC) (NEGATIVE) Influenza Type A Ag NEGATIVE (NEGATIVE) Influenza Type B Ag NEGATIVE (NEGATIVE) RSV (PCR) NEGATIVE (Negative) <ELLI LEDESMA - Last Filed: 01/02/18 18:58> - Progress Progress: improved Air Movement: good Blood Culture(s) Obtained: Yes Antibiotics given: Yes Discussed with : Dino Will see patient in: hospital (observation) Counseled pt/family regarding: lab results, diagnosis, need for follow-up, rad results <EMILY CHAVIRA - Last Filed: 01/02/18 22:20> - Progress Progress Note: 01/02/18 18:48 Pt care discussed and care transferred to Dr Chavira at 19:00. (ELLI LEDESMA) 01/02/18 22:18 Pt improved after iv saline and Rocephin, no fever, no severe pain or shortness of breath, she has been stable. I called Dr Sloan, discussed our results and her current condition, he agreed to admit her for observation. Patient and her family was notified, they agreed. (EMILY CHAVIRA) <ELLI LEDESMA - Last Filed: 01/02/18 18:58> - Departure Time of Disposition: 22:19 Departure Disposition: Observation Critical Care Time: No <EMILY CHAVIRA - Last Filed: 01/02/18 22:20> - Departure Clinical Impression: Chest pain Qualifiers: Chest pain type: unspecified Qualified Code(s): R07.9 - Chest pain, unspecified UTI (urinary tract infection) Qualifiers: Urinary tract infection type: acute pyelonephritis Qualified Code(s): N10 - Acute pyelonephritis Condition: Stable Referrals: LAINEY SLOAN MD [Primary Care Provider] - Instructions: Cough, Adult (DC)
[2018-01-02] MEDS ORDERED: PROVENTIL 2.5 MG/3 ML NEB IH ONE ×2 (18:49→19:04)
[2018-01-02] MEDS ORDERED: TORAdol 30 mg Injection IV ONE (18:53)
[2018-01-02] MEDS ORDERED: TORAdol 30 mg Injection ONE (19:03)
[2018-01-02 19:29] LABS: Lactic Acid 2.5 (0.4-2.0)
[2018-01-02 19:30] LABS: Granulocyte Absolute (ANC) 20.58 (1.4-6.9); Hematocrit 43.8 % (35-47); Hemoglobin 14.2 gm/dl (12.0-16.0); Mean Cell Volume 81.7 fl (78-100); Mean Corpuscular Hemoglobin 26.5 pg (26-32); Mean Corpuscular Hgb Concent. 32.4 g/dl (32-36); Mean Platelet Volume 9.1 fl (6-9.5); Platelet Count 511 K/mm3 (150-450); Red Blood Count 5.36 M/mm3 (4.1-5.4); Red Cell Distribution Width 14.5 % (11.5-14.0)
[2018-01-02 19:57] LABS: White Blood Count 25.8 K/mm3 (4.0-10.5)
[2018-01-02 20:05] LABS: ALBUMIN 4.6 g/dL (3.5-5.0); ALKALINE PHOSPHATASE 87 U/L (38-126); ANION GAP 16.8 MEQ/L (5-15); BLOOD UREA NITROGEN 21 mg/dL (7-17); CHLORIDE 98 mmol/L (98-107); Calcium 9.7 mg/dL (8.4-10.2); Carbon Dioxide 28 mmol/L (22-30); Creatinine 1 0.87 mg/dL (0.52-1.04); Glucose 165 mg/dL (74-106); NT PRO BNP 93.1 pg/mL (0-450); Potassium 3.9 mmol/L (3.5-5.1); SGOT/AST 29 U/L (14-36); SGPT/ALT 36 U/L (0-35); SODIUM 139 mmol/L (137-145); Total Protein 7.8 g/dL (6.3-8.2)
[2018-01-02 20:17] LABS: INFLUENZA A NEGATIVE (NEGATIVE); INFLUENZA B NEGATIVE (NEGATIVE); RESPIRATORY SYNCTIAL VIRUS NEGATIVE (Negative)
[2018-01-02] MEDS ORDERED: Sodium Chloride 0.9% 1000 ML 1,000 ML IV STA (20:17)
[2018-01-02] MEDS ORDERED: Sodium Chloride 0.9% 1000 ML 1,000 ML ONE (20:18)
[2018-01-02] MEDS ORDERED: Zofran 4 MG/2 ML VIAL IV ONE (20:18)
[2018-01-02] MEDS ORDERED: SUBLIMAZE 100 MCG/2 ML IV ONE (20:18)
[2018-01-02] MEDS ORDERED: Zofran 4 MG/2 ML VIAL ONE (20:21)
[2018-01-02] MEDS ORDERED: SUBLIMAZE 100 MCG/2 ML ONE (20:22)
[2018-01-02] MEDS ORDERED: Ativan 2 MG/1 ML VIAL IV ONE (20:49)
[2018-01-02 20:58] LABS: Appearance CLOUDY (CLEAR); Bilirubin NEGATIVE (NEGATIVE); Blood NEGATIVE Ery/ul (0-5); Glucose NEGATIVE (NEGATIVE); Ketones NEGATIVE (NEGATIVE); Leukocyte Esterase SMALL (NEGATIVE); Nitrite NEGATIVE (NEGATIVE); Protein,Urine Dip NEGATIVE (Negative); Specific Gravity 1.028 (1.005-1.025); Urobilinogen NEGATIVE mg/dL (0-1)
[2018-01-02 21:03] LABS: Amphetamine,Urine NEGATIVE (NEGATIVE); Barbiturate,Urine NEGATIVE (NEGATIVE); Benzodiazepine,Urine NEGATIVE (NEGATIVE); Cocaine,Urine NEGATIVE (NEGATIVE); Methadone,Urine NEGATIVE (NEGATIVE); Opiate,Urine NEGATIVE (NEGATIVE); PCP,Urine NEGATIVE (NEGATIVE); THC,Urine NEGATIVE (NEGATIVE)
[2018-01-02] MEDS ORDERED: ROCEPHIN 1 Gm-D5w 50 ml Bag** 1 G/50 ML IVPB IV STA (21:15)
[2018-01-02] MEDS ORDERED: Ativan 2 MG/1 ML VIAL ONE (21:19)
[2018-01-02] MEDS ORDERED: ROCEPHIN 1 Gm-D5w 50 ml Bag** 1 G/50 ML IVPB IV ONE (21:19)
[2018-01-02 22:09] LABS: Lactic Acid 2.1 (0.4-2.0)
[2018-01-02] MEDS ORDERED: Senokot-S Tablet PO PRN (22:20)
[2018-01-02] MEDS ORDERED: TYLENOL 325 MG PO PRN (22:20)
[2018-01-02] MEDS ORDERED: Zofran 4 MG/2 ML VIAL IV PRN (22:20)
[2018-01-02] MEDS ORDERED: MILK OF MAGNESIA 30 ML PO PRN (22:20)
[2018-01-02] MEDS ORDERED: MAALOX ES 30 ML UNIT DOSE PO PRN (22:20)
[2018-01-02] MEDS: Sodium Chloride 0.9% 1000 ML 1,000 ML IV SCH (23:34)
[2018-01-03 05:01] LABS: Risk Ratio 2.5
[2018-01-03 05:22] LABS: BAND 2 % (0.0-2.0); Lymphocytes 14 % (24-44); Monocyte 4 % (0.0-12.0); Neutrophils 80 % (36.0-66.0); Platelet Estimate INCREASED (NORMAL); Total Cells Counted 100
[2018-01-03 05:23] LABS: ANISOCYTOSIS 1+; Poikilocytosis 1+
--- NOTE | 2018-01-03 08:32 | XRAY ---
Indication: Chest pain, cough, and short of breath. Comparison: August 08, 2016. PA/lateral chest again demonstrates normal heart, lungs, and bony thorax.
[2018-01-03] MEDS: Ecotrin 325 MG PO SCH (08:56)
[2018-01-03] MEDS: Sodium Chloride 0.9% 1000 ML 1,000 ML IV SCH ×2 (08:59→19:04)
[2018-01-03 10:59] LABS: Hematocrit 40.6 % (35-47); Hemoglobin 12.8 gm/dl (12.0-16.0); Mean Cell Volume 83.9 fl (78-100); Mean Corpuscular Hemoglobin 26.4 pg (26-32); Mean Corpuscular Hgb Concent. 31.5 g/dl (32-36); Mean Platelet Volume 9.3 fl (6-9.5); Platelet Count 452 K/mm3 (150-450); Red Blood Count 4.84 M/mm3 (4.1-5.4); Red Cell Distribution Width 14.9 % (11.5-14.0); White Blood Count 21.5 K/mm3 (4.0-10.5)
[2018-01-03] MEDS ORDERED: MEDICATION INTERVENTION PO SCH (13:00)
[2018-01-03] MEDS: ENOXAPARIN SODIUM SQ SCH (13:45)
[2018-01-03] MEDS ORDERED: ROCEPHIN 1 Gm-D5w 50 ml Bag** 1 G/50 ML IVPB IV SCH (22:00)
[2018-01-04] MEDS: Sodium Chloride 0.9% 1000 ML 1,000 ML IV SCH (05:36)
[2018-01-04 07:28] VITALS: BP 100/66; PULSE 82; O2SAT 96
--- NOTE | 2018-01-04 07:50 | CONS ---
CONSULT DATE: 01/03/2018 HISTORY: Hanane Romeo is a 22 year-old girl who has been sick for about a week. The patient reports that she was initially seen with upper respiratory tract infection/bronchitis-like symptoms at [facility] and was hospitalized at that facility overnight. The patient was treated with antibiotics and steroids. She was discharged from there. However she continued to feel palpitations and shortness of breath leading to another hospitalization at [facility]. I was requested by Dr. Sun to evaluate her. At the time of my evaluation the patient is comfortable. She is on room air. She reports palpitations with heart rate in 180's last night. However current heart monitor shows her heart rate is just around 100 to 105. The patient was also noted to have elevated white blood cell count, However she was discharged with oral steroids and oral antibiotics. She has remained afebrile although did report some fever at home. The patient denies previous cardiac or pulmonary problems. Other than oral contraceptives she is not on any prescription medications prior to this admission. Her urine tox was negative along with urine test and D-dimer was negative as well. PAST SURGICAL HISTORY: No recent surgery. PERSONAL AND SOCIAL HISTORY: Negative. MEDICATIONS: Home and current medications are reviewed. ALLERGIES: NKDA. PHYSICAL EXAMINATION: This is a young girl who appears comfortable as reported. Vital signs noted. HEENT: Normocephalic. Oral exam is unremarkable. CVS: First and second heart sounds with mild tachycardia. RESPIRATORY: Shows diminished breath sounds but chest is clear to auscultation. ABDOMEN: Soft. EXTREMITIES: No edema is present. LABORATORY DATA AND TESTS: X-rays and other diagnostic tests were all reviewed. Troponins were negative. Lactic acid was negative as well. ASSESSMENT: This is a 22 year old girl admitted with bronchitis-like symptoms from which she is currently recovering although is noted to have tachycardia. Will investigate this further. RECOMMENDATIONS: I agree with present treatment. The patient remains at rest. To cover for deep venous thrombosis will add Lovenox 40 mg subcu daily along with SCD's. Check thyroid function test. Check echocardiogram to rule out pericarditis likely viral. Monitor white count. I agree with other treatment. May benefit from a low dose beta sadie however will wait for echo prior to that. Continue other care. I will continue to follow as needed. I discussed with Dr. Sun. Thank you for allowing me to participate in the care of your patient.
[2018-01-04 09:40] LABS: Mean Cell Volume 83.3 fl (78-100); Mean Corpuscular Hemoglobin 26.4 pg (26-32); Mean Corpuscular Hgb Concent. 31.7 g/dl (32-36); Platelet Count 393 K/mm3 (150-450); Red Blood Count 4.92 M/mm3 (4.1-5.4); Red Cell Distribution Width 14.9 % (11.5-14.0); White Blood Count 15.9 K/mm3 (4.0-10.5)
[2018-01-04] MEDS ORDERED: NORGESTIMATE ETHINYL ESTRADIOL PO SCH (10:00)
[2018-01-04] MEDS: ENOXAPARIN SODIUM SQ SCH (10:02)
[2018-01-04] MEDS: Ecotrin 325 MG PO SCH (10:02)
[2018-01-04 10:11] LABS: ALKALINE PHOSPHATASE 76 U/L (38-126); ANION GAP 13.8 MEQ/L (5-15); BLOOD UREA NITROGEN 16 mg/dL (7-17); CHLORIDE 103 mmol/L (98-107); Calcium 9.1 mg/dL (8.4-10.2); Carbon Dioxide 27 mmol/L (22-30); Creatinine 1 0.89 mg/dL (0.52-1.04); Glucose 109 mg/dL (74-106); SGOT/AST 16 U/L (14-36); SGPT/ALT 24 U/L (0-35); SODIUM 139 mmol/L (137-145); Total Protein 6.9 g/dL (6.3-8.2)
--- NOTE | 2018-01-04 11:49 | PCM.SSS ---
History of Present Illness - Chief Complaint Chief Complaint: Shortness of Breath for 1-2 weeks History of Present Illness: The patient is a 22-year-old obese female with her mother complaining that she has a cough and chest pain with cough and breathing for about one week. She was seen at [facility] on Sunday (3 days ago) for the same complaint. I have reviewed the notes and [facility]. The diagnosis was bronchitis. She was given levofloxacin 700 mg daily, albuterol inhaler, and prednisone 20 mg 2 times a day for 5 days. She had been wheezing earlier but now states her wheezing has improved. She feels like she has had a fever but did not take her temperature. Before going to [place], she had pink tinged sputum with coughing. The sputum is now normal color. She states that at times she has difficulty breathing. She has not received her influenza vaccination this year. She is on oral control. Her past medical history is significant for an atretic kidney as a . She does not smoke nor drink. - Review of Systems Constitutional: No Fever, No Chills Eyes: No Symptoms Ears, Nose, & Throat: No Symptoms Respiratory: Short Of Breath, No Cough Cardiac: Palpitations, No Chest Pain, No Edema, No Syncope Abdominal/Gastrointestinal: No Abdominal Pain, No Nausea, No Vomiting, No Diarrhea Genitourinary Symptoms: No Dysuria Musculoskeletal: No Back Pain, No Neck Pain Skin: No Rash Neurological: No Dizziness, No Focal Weakness, No Sensory Changes Psychological: No Symptoms Endocrine: No Symptoms Hematologic/Lymphatic: No Symptoms Immunological/Allergic: No Symptoms Medications & Allergies Home Medications: Home Medication List Norgestimate-Ethinyl Estradiol [Tri-Sprintec] 1 tab DAILY 01/02/18 [History Confirmed 01/02/18] Prednisone 20 mg [Deltasone 20 mg] 20 mg PO BID 01/02/18 [History Confirmed 01/02/18] levoFLOXacin [Levofloxacin] 750 mg PO DAILY 01/02/18 [History Confirmed 01/02/18 ] Metoprolol Succinate 25 mg Xl* [Toprol-Xl 25MG Tablets] 25 mg PO DAILY #30 tab 01/04/18 [Rx] Allergies/Adverse Reactions: Allergies Allergy/AdvReac Type Severity Reaction Status Date / Time No Known Drug Allergies Allergy Verified 01/02/18 17:08 - Past Medical History Past Medical History: Yes Respiratory History: Bronchitis Pyscho-Social History: Anxiety, Depression - Female History Hx Last Menstrual Period: 12/31/17 Are you now?: No - Past Surgical History Past Surgical History: Yes Other Surgical History: kidney surgery as baby - Social History Smoking Status: Never smoker Exposure to second hand smoke: No Alcohol: None Drug Use: none - Physical Exam Vital Signs: Vital Signs - 24 hr Temp Pulse Resp BP Pulse Ox 01/04/18 07:27 97.8 F 82 20 100/66 96 01/04/18 04:05 97.7 F 85 16 106/61 97 01/04/18 04:00 97 01/04/18 00:03 97.8 F 77 24 123/70 97 01/04/18 00:00 97 01/03/18 19:46 98.3 F 96 H 18 120/71 98 01/03/18 19:45 98 01/03/18 16:23 98.3 F 82 18 132/76 95 01/03/18 16:00 95 01/03/18 12:12 99 General Appearance: no apparent distress, alert Neurologic Exam: alert, oriented x 3, cooperative, normal mood/affect, nml cerebellar function, nml station & gait, sensation nml, No motor deficits Eye Exam: PERRL/EOMI, eyes nml inspection Ears, Nose, Throat Exam: normal ENT inspection, TMs normal, pharynx normal, moist mucous membranes Neck Exam: normal inspection, non-tender, supple, full range of motion Respiratory Exam: normal breath sounds, lungs clear, No respiratory distress Cardiovascular Exam: regular rate/rhythm, normal heart sounds, normal peripheral pulses Gastrointestinal/Abdomen Exam: soft, normal bowel sounds, No tenderness, No mass Back Exam: normal inspection, normal range of motion, No CVA tenderness, No vertebral tenderness Extremity Exam: normal inspection, normal range of motion, pelvis stable Skin Exam: normal color, warm, dry, No rash Lymphatic Exam: No adenopathy Results - Labs Lab/Micro Results: Lab Results-Last 24 Hours 01/03/18 01/03/18 01/03/18 Range/Units 04:00 04:00 04:00 WBC (4.0-10.5) K/mm3 RBC (4.1-5.4) M/mm3 Hgb (12.0-16.0) gm/dl Hct (35-47) % MCV (78-100) fl MCH (26-32) pg MCHC (32-36) g/dl RDW (11.5-14.0) % Plt Count (150-450) K/mm3 MPV (6-9.5) fl Sodium (137-145) mmol/L Potassium (3.5-5.1) mmol/L Chloride (98-107) mmol/L Carbon Dioxide (22-30) mmol/L Anion Gap (5-15) MEQ/L BUN (7-17) mg/dL Creatinine (0.52-1.04) mg/dL Estimated GFR ML/MIN Glucose (74-106) mg/dL Calcium (8.4-10.2) mg/dL Total Bilirubin (0.2-1.3) mg/dL AST (14-36) U/L ALT (0-35) U/L Alkaline Phosphatase (38-126) U/L Serum Total Protein (6.3-8.2) g/dL Albumin (3.5-5.0) g/dL Thyroxine (T4) 12.5 H (5.53-10.96) ug/dL T3 (PRINCESS) 147 (80-200) ng/dL TSH 3rd Generation 4.010 (0.47-4.68) mIU/L 01/04/18 01/04/18 Range/Units 09:18 09:18 WBC 15.9 H (4.0-10.5) K/mm3 RBC 4.92 (4.1-5.4) M/mm3 Hgb 13.0 (12.0-16.0) gm/dl Hct 41.0 (35-47) % MCV 83.3 (78-100) fl MCH 26.4 (26-32) pg MCHC 31.7 L (32-36) g/dl RDW 14.9 H (11.5-14.0) % Plt Count 393 (150-450) K/mm3 MPV 9.0 (6-9.5) fl Sodium 139 (137-145) mmol/L Potassium 4.0 (3.5-5.1) mmol/L Chloride 103 (98-107) mmol/L Carbon Dioxide 27 (22-30) mmol/L Anion Gap 13.8 (5-15) MEQ/L BUN 16 (7-17) mg/dL Creatinine 0.89 (0.52-1.04) mg/dL Estimated GFR > 60.0 ML/MIN Glucose 109 H (74-106) mg/dL Calcium 9.1 (8.4-10.2) mg/dL Total Bilirubin 0.20 (0.2-1.3) mg/dL AST 16 (14-36) U/L ALT 24 (0-35) U/L Alkaline Phosphatase 76 (38-126) U/L Serum Total Protein 6.9 (6.3-8.2) g/dL Albumin 4.0 (3.5-5.0) g/dL Thyroxine (T4) (5.53-10.96) ug/dL T3 (PRINCESS) (80-200) ng/dL TSH 3rd Generation (0.47-4.68) mIU/L Microbiology 01/02/18 20:41 Urine Culture - Final Urine, Void NO GROWTH - Radiology Impressions Radiology Exams & Impressions: Radiology Procedures Category Date Time Status CHEST 2 VIEWS (PA AND LAT) Stat Exams 01/02/18 18:50 Completed ECHO W/2D AND DOPPLER [US] Routine Exams 01/03/18 13:00 Taken - Other Procedures and Tests Respiratory Therapy 01/05/18 05:00 EKG DAILY 01/06/18 05:00 EKG DAILY Assessment/Plan (1) Palpitations Current Visit: Yes Status: Resolved Code(s): R00.2 - PALPITATIONS (2) Bronchitis Current Visit: Yes Status: Acute Onset Date: ~01/02/18 Assessment & Plan: improved Code(s): J40 - BRONCHITIS, NOT SPECIFIED ACUTE OR CHRONIC (3) SOB (shortness of breath) Current Visit: Yes Status: Resolved Onset Date: ~01/02/18 Code(s): R06.02 - SHORTNESS OF BREATH Hospital Summary - Hospital Course Hospital Course: Last Vital Signs Temp 97.8 F 01/04/18 07:27 Pulse 82 01/04/18 07:27 Resp 20 01/04/18 07:27 BP 100/66 01/04/18 07:27 Pulse Ox 96 01/04/18 07:27 Allergies No Known Drug Allergies Allergy (Verified 01/02/18 17:08) Active Medications Acetaminophen (Tylenol 325 Mg) 650 mg PO Q4H PRN PRN PRN Reason: PAIN AND/OR FEVER Stop: 02/01/18 22:19 Last Admin: 01/03/18 16:24 Dose: 650 mg Al Hydrox/Mg Hydrox/Simethicone (Maalox Es 30 Ml Unit Dose) 30 ml PO Q4H PRN PRN PRN Reason: INDIGESTION Stop: 02/01/18 22:19 Aspirin (Ecotrin 325 Mg) 325 mg PO DAILY [facility] [place] Stop: 02/02/18 09:59 Last Admin: 01/04/18 10:02 Dose: 325 mg Enoxaparin Sodium (Enoxaparin Sodium) 40 mg SQ DAILY KIM Stop: 02/02/18 13:59 Last Admin: 01/04/18 10:02 Dose: 40 mg Ceftriaxone Sodium/Dextrose (Rocephin 1 Gm-D5w 50 Ml Bag) 1 g in 50 mls @ 100 mls/hr IV Q24H22 [facility] [place] Stop: 02/02/18 21:59 Last Admin: 01/03/18 22:59 Dose: 100 mls/hr Sodium Chloride (Sodium Chloride 0.9% 1000 Ml) 1,000 mls @ 100 mls/hr IV .Q10H KIM Stop: 02/01/18 22:29 Last Admin: 01/04/18 05:36 Dose: 100 mls/hr Magnesium Hydroxide (Milk Of Magnesia 30 Ml) 30 - 60 ml PO QDP PRN PRN Reason: CONSTIPATION Stop: 02/01/18 22:19 Miscellaneous Information (Medication Intervention) 1 each PO .RN TO CHECK ON KIM Stop: 02/02/18 12:59 Ondansetron HCl (Zofran 4 Mg/2 Ml Vial) 4 mg IV Q4H PRN PRN PRN Reason: NAUSEA/VOMITING Stop: 02/01/18 22:19 Senna/Docusate Sodium (Senokot-S Tablet) 2 udtab PO BID PRN PRN PRN Reason: CONSTIPATION Stop: 02/01/18 22:19 Intake & Output 01/03/18 01/04/18 11:59 11:59 Intake Total 1162 4136 Output Total 800 2850 Balance 362 1286 Weight 100.5 kg 100.2 kg Orders 01/03/18 12:22 Consult Pulmonology ROUTINE 01/04/18 Discharge Routine 01/05/18 05:00 EKG DAILY 01/06/18 05:00 EKG DAILY Lab Tests 01/03/18 01/03/18 01/03/18 04:00 04:00 04:00 WBC RBC Hgb Hct MCV MCH MCHC RDW Plt Count MPV Sodium Potassium Chloride Carbon Dioxide Anion Gap BUN Creatinine Estimated GFR Glucose Calcium Total Bilirubin AST ALT Alkaline Phosphatase Serum Total Protein Albumin Thyroxine (T4) 12.5 H T3 (PRINCESS) 147 TSH 3rd Generation 4.010 01/04/18 01/04/18 09:18 09:18 WBC 15.9 H RBC 4.92 Hgb 13.0 Hct 41.0 MCV 83.3 MCH 26.4 MCHC 31.7 L RDW 14.9 H Plt Count 393 MPV 9.0 Sodium 139 Potassium 4.0 Chloride 103 Carbon Dioxide 27 Anion Gap 13.8 BUN 16 Creatinine 0.89 Estimated GFR > 60.0 Glucose 109 H Calcium 9.1 Total Bilirubin 0.20 AST 16 ALT 24 Alkaline Phosphatase 76 Serum Total Protein 6.9 Albumin 4.0 Thyroxine (T4) T3 (PRINCESS) TSH 3rd Generation Microbiology 01/02/18 20:41 Urine, Void Urine Culture - Final NO GROWTH - Vitals & Intake/Output Vital Signs: Vital Signs Temperature 97.8 F 01/04/18 07:27 Pulse Rate 82 01/04/18 07:27 Respiratory Rate 20 01/04/18 07:27 Blood Pressure 100/66 01/04/18 07:27 O2 Sat by Pulse Oximetry 96 01/04/18 07:27 Intake & Output: Intake & Output 01/01/18 01/02/18 01/03/18 01/04/18 11:59 11:59 11:59 11:59 Intake Total 1162 4136 Output Total 800 2850 Balance 362 1286 Weight 100.5 kg 100.2 kg - Lab Result Diagrams: 01/04/18 09:18 01/04/18 09:18 Lab Results-Last 24 Hrs: Lab Results-Last 24 Hours 01/03/18 01/03/18 01/03/18 Range/Units 04:00 04:00 04:00 WBC (4.0-10.5) K/mm3 RBC (4.1-5.4) M/mm3 Hgb (12.0-16.0) gm/dl Hct (35-47) % MCV (78-100) fl MCH (26-32) pg MCHC (32-36) g/dl RDW (11.5-14.0) % Plt Count (150-450) K/mm3 MPV (6-9.5) fl Sodium (137-145) mmol/L Potassium (3.5-5.1) mmol/L Chloride (98-107) mmol/L Carbon Dioxide (22-30) mmol/L Anion Gap (5-15) MEQ/L BUN (7-17) mg/dL Creatinine (0.52-1.04) mg/dL Estimated GFR ML/MIN Glucose (74-106) mg/dL Calcium (8.4-10.2) mg/dL Total Bilirubin (0.2-1.3) mg/dL AST (14-36) U/L ALT (0-35) U/L Alkaline Phosphatase (38-126) U/L Serum Total Protein (6.3-8.2) g/dL Albumin (3.5-5.0) g/dL Thyroxine (T4) 12.5 H (5.53-10.96) ug/dL T3 (PRINCESS) 147 (80-200) ng/dL TSH 3rd Generation 4.010 (0.47-4.68) mIU/L 01/04/18 01/04/18 Range/Units 09:18 09:18 WBC 15.9 H (4.0-10.5) K/mm3 RBC 4.92 (4.1-5.4) M/mm3 Hgb 13.0 (12.0-16.0) gm/dl Hct 41.0 (35-47) % MCV 83.3 (78-100) fl MCH 26.4 (26-32) pg MCHC 31.7 L (32-36) g/dl RDW 14.9 H (11.5-14.0) % Plt Count 393 (150-450) K/mm3 MPV 9.0 (6-9.5) fl Sodium 139 (137-145) mmol/L Potassium 4.0 (3.5-5.1) mmol/L Chloride 103 (98-107) mmol/L Carbon Dioxide 27 (22-30) mmol/L Anion Gap 13.8 (5-15) MEQ/L BUN 16 (7-17) mg/dL Creatinine 0.89 (0.52-1.04) mg/dL Estimated GFR > 60.0 ML/MIN Glucose 109 H (74-106) mg/dL Calcium 9.1 (8.4-10.2) mg/dL Total Bilirubin 0.20 (0.2-1.3) mg/dL AST 16 (14-36) U/L ALT 24 (0-35) U/L Alkaline Phosphatase 76 (38-126) U/L Serum Total Protein 6.9 (6.3-8.2) g/dL Albumin 4.0 (3.5-5.0) g/dL Thyroxine (T4) (5.53-10.96) ug/dL T3 (PRINCESS) (80-200) ng/dL TSH 3rd Generation (0.47-4.68) mIU/L Micro Results-Entire Visit: Microbiology 01/02/18 20:41 Urine Culture - Final Urine, Void NO GROWTH - Radiology Exams Ordered Rad Exams-Entire Visit: Radiology Procedures Category Date Time Status CHEST 2 VIEWS (PA AND LAT) Stat Exams 01/02/18 18:50 Completed ECHO W/2D AND DOPPLER [US] Routine Exams 01/03/18 13:00 Taken - Procedures and Test Procedures and Tests throughout Hospitalization: Therapy Orders & Screens 01/02/18 18:52 Respiratory Nebulizer STAT Comment: Diagnosis: Shortness of Breath 01/02/18 20:32 Respiratory Therapy Assessment ASORD Comment: Diagnosis: Shortness of Breath 01/02/18 22:20 EKG Q8HX2,QAMX3,PRN Comment: Diagnosis: Shortness of Breath 01/03/18 05:00 EKG ROUTINE Comment: Diagnosis: Shortness of Breath 01/04/18 05:00 EKG DAILY Comment: Diagnosis: Shortness of Breath 01/05/18 05:00 EKG DAILY Comment: Diagnosis: Shortness of Breath 01/06/18 05:00 EKG DAILY Comment: Diagnosis: Shortness of Breath - Discharge Discharge Date: 01/04/18 Disposition: Home, Self-Care Condition: Stable Prescriptions: New Metoprolol Succinate 25 mg Xl* [Toprol-Xl 25MG Tablets] 25 mg PO DAILY # 30 tab Continue levoFLOXacin [Levofloxacin] 750 mg PO DAILY Prednisone 20 mg [Deltasone 20 mg] 20 mg PO BID Norgestimate-Ethinyl Estradiol [Tri-Sprintec] 1 tab DAILY Instructions: Acute Bronchitis, Adult (DC), Pericarditis, Adult (DC) Additional Instructions: MAKE SURE YOU KEEP ALL OF YOUR FOLLOWUP APPOINTMENTS WITH YOUR PHYSICIANS. CALL THEM FOR ANY RETURN OF SYMPTOMS, OR IF AFTER HOURS GO TO EMERGENCY DEPARTMENT. Follow up with: JESSICA WYATT [ACTIVE STAFF] - 01/17/18 9:45 am (at [place] ) LAINEY SLOAN MD [Primary Care Provider] - 01/11/18 3:45 pm (at [place] ) Forms: Discharge Instructions, Work/School Release Form
== END 2018-01-04 11:45 | disposition home or self-care (01) ==
LOC: ED 17:01 → MED SURG 22:42
PROVIDERS: ADMIT General Practice; ATTEND General Practice
DX: R00.2 Palpitations (principal); J40 Bronchitis, not specified as acute or chronic; R06.02 Shortness of breath
CPT/HCPCS: 36000; 36415; 71046; 80053; 80061; 80307; 81001; 83605; 83721; 83880; 84436; 84443; 84480; 84484; 84703; 85025; 85027; 85379; 87086; 87631; 93005; 93041; 93268; 93306; 94640; 94760; 96360; 96365; 96374; 96375; 99285; J7609; J0696; J1650; J1885; J2060; J2405; J3010; A9270-GY; G0378

== ENCOUNTER 2018-02-04 22:23 | Observation (INO) | payer OTHER ==
[2018-02-04] MEDS ORDERED: BABY ASPIRIN 81 MG CHEW PO ONE (23:41)
[2018-02-04] MEDS ORDERED: BABY ASPIRIN 81 MG CHEW ONE (23:50)
--- NOTE | 2018-02-04 23:52 | ERPHSYRPT ---
- History of Present Illness Time Seen by Provider: 02/04/18 22:35 Historian: patient, family Patient Subjective Stated Complaint: PT IS ALERT AND ORIENTED. PT BROUGHT IN VIA WHEELCHAIR BUT ABLE TO AMBULATE TO THE BED. PT STATES SHE HAS BEEN HAVING CHEST PAIN SINCE 6AM THAT HAS WORSENED THROUGHOUT THE DAY. WHILE IN THE WHEELCHAIR AND WHILE AMBULATING TO THE BED PT WAS GRASPING HER CHEST. PT IS NOW RESTING COMFORTABLY IN THE BED. PT HEART SOUNDS FAST AND REGULAR AT 125bpm. PT STATES SHE HAS HAD SOB, NAUSEA, DIZZINESS, LIGHTHEADEDNESS. PT RADIAL PULSES EQUAL AND STRONG. Triage Nursing Assessment: SEE ABOVE Physician History: PATIENT WITH A HISTORY OF INTERMITTENT CHEST PAINS AND DYSPNEA X 3-4 MONTHS. HAS ONSET OF SHARP SUBSTERNAL CHEST PAINS SINCE 6AM TODAY WORSE UPON INSPIRATION AND MOTION OF TORSO ASSOCIATED WITH DYSPNEA AND PALPITATIONS. DENIES COUGH AND FEVER. Timing/Duration: today, constant Quality: sharpness Location: substernal Chest Pain Radiation: no radiation Severity of Pain-Max: moderate Severity of Pain-Current: moderate Modifying Factors: Improves With: breathing, change in position Associated Symptoms: palpitations, hurts to breathe Prior Chest Pain/Cardiac Workup: recent hospitalization Nitro Today/Relief: no nitro taken today Aspirin Treatment Today: 81 mg x 4, provided by ED Allergies/Adverse Reactions: No Known Drug Allergies Allergy (Verified 01/02/18 17:08) Home Medications: Norgestimate-Ethinyl Estradiol [Tri-Sprintec] 1 tab DAILY 01/02/18 [History] Hx Tetanus, Diphtheria Vaccination/Date Given: Yes Hx Influenza Vaccination/Date Given: Yes Hx Pneumococcal Vaccination/Date Given: No Immunizations Up to Date: Yes - Review of Systems Constitutional: No Fever, No Chills Eyes: No Symptoms Ears, Nose, & Throat: No Symptoms Respiratory: Dyspnea, No Cough Cardiac: Chest Pain, Palpitations, No Edema, No Syncope Abdominal/Gastrointestinal: No Symptoms, No Abdominal Pain, No Nausea, No Vomiting, No Diarrhea Genitourinary Symptoms: No Symptoms, No Dysuria Musculoskeletal: No Symptoms, No Back Pain, No Neck Pain Skin: No Rash Neurological: No Dizziness, No Focal Weakness, No Sensory Changes Psychological: No Symptoms Endocrine: No Symptoms All Other Systems: Reviewed and Negative - Past Medical History Pertinent Past Medical History: Yes Cardiac History: Other Respiratory History: Bronchitis Psycho-Social History: Anxiety, Depression Other Medical History: HEART MURMUR, TACHYCARDIA, A-FIBB - Past Surgical History Past Surgical History: Yes Other Surgical History: kidney surgery as baby - Social History Smoking Status: Never smoker Exposure to second hand smoke: No Drug Use: none Patient Lives Alone: No - Female History Hx Now: No - Nursing Vital Signs Nursing Vital Signs: Initial Vital Signs Pulse Rate 129 H 02/04/18 22:24 Respiratory Rate 20 02/04/18 22:24 Blood Pressure 138/103 02/04/18 22:24 O2 Sat by Pulse Oximetry 94 L 02/04/18 22:24 Pain Scale Pain Intensity 8 - Physical Exam General Appearance: alert, anxiety Eye Exam: PERRL/EOMI, eyes nml inspection Ears, Nose, Throat Exam: normal ENT inspection, moist mucous membranes Neck Exam: normal inspection, non-tender, supple, full range of motion Respiratory Exam: normal breath sounds, chest tenderness (MARKED PARASTERNAL TENDERNESS T4 TO T8) SpO2: 98 Oxygen Delivery: Room Air - Course EKG Interpreted by Me: RATE, Sinus Rhythm, Sinus Tach (RATE OF ), NORMAL AXIS Ordered Tests: Active Orders 24 hr Category Date Time Status Up With Assistance ROUTINE Activity 02/05/18 01:08 Active Manager It Security STAT Care 02/04/18 23:42 Active Code Status Order ROUTINE Care 02/05/18 01:07 Active EKG-ER Only STAT Care 02/04/18 23:41 Active IV Care Q6H Care 02/05/18 01:07 Active Implement Chest Pain Pathway ROUTINE Care 02/05/18 01:[address] in Observation ROUTINE Care 02/05/18 01:07 Active Rosa Isela Carballo ROUTINE Care 02/05/18 01:07 Active Telemetry ROUTINE Care 02/05/18 01:07 Active Vital Signs Q4H Care 02/05/18 01:07 Active Weight,Daily 0600 Care 02/05/18 01:07 Active Regular Diet Diet 02/05/18 Breakfast Active CHEST 1 VIEW (PORTABLE) Stat Exams 02/05/18 01:06 Ordered BMP Stat Lab 02/04/18 23:45 Completed LIPID PROFILE AM.LAB Lab 02/05/18 04:00 Ordered TROPONIN Q3H Lab 02/04/18 23:45 Completed TROPONIN Q3H Lab 02/05/18 02:45 Ordered TROPONIN Q3H Lab 02/05/18 05:45 Ordered TROPONIN Q3H Lab 02/05/18 08:45 Ordered TROPONIN Q3H Lab 02/05/18 11:45 Ordered EKG Q8HX2,QAMX3,PRN RT 02/05/18 01:07 Active Pulse Oximetry Q4H RT 02/05/18 01:07 Active Transfer Order Routine Transfer 02/05/18 Ordered Medication Summary Generic Name Dose Route Start Last Admin Trade Name [place] PRN Reason Stop Dose Admin Acetaminophen 650 mg 02/05/18 01:07 Tylenol 325 Mg PO 03/07/18 01:06 Q4H PRN PRN PAIN AND/OR FEVER Al Hydrox/Mg Hydrox/Simethicone 30 ml 02/05/18 01:07 Maalox Es 30 Ml Unit Dose PO 03/07/18 01:06 Q4H PRN PRN INDIGESTION Aspirin 325 mg 02/05/18 10:00 Ecotrin 325 Mg PO 03/07/18 09:59 DAILY KIM Magnesium Hydroxide 30 - 60 ml 02/05/18 01:07 Milk Of Magnesia 30 Ml PO 03/07/18 01:06 QDP PRN CONSTIPATION Metoprolol Succinate 50 mg 02/05/18 10:00 Toprol-Xl 25mg Tablets PO 03/07/18 09:59 DAILY [facility] Senna/Docusate Sodium 2 udtab 02/05/18 01:07 Senokot-S Tablet PO 03/07/18 01:06 BID PRN PRN CONSTIPATION Discontinued Medications Generic Name Dose Route Start Last Admin Trade Name [place] PRN Reason Stop Dose Admin Aspirin 324 mg 02/04/18 23:41 02/04/18 23:49 Baby Aspirin 81 Mg Chew PO 02/04/18 23:42 324 mg STAT ONE Administration Aspirin Confirm 02/04/18 23:50 Baby Aspirin 81 Mg Chew Administered 02/04/18 23:51 Dose 324 mg .ROUTE .STK-MED ONE Metoprolol Tartrate 25 mg 02/05/18 00:44 02/05/18 00:48 Lopressor 25mg Tab PO 02/05/18 00:45 25 mg STAT ONE Administration Metoprolol Tartrate Confirm 02/05/18 00:47 Lopressor 25mg Tab Administered 02/05/18 00:48 Dose 25 mg .ROUTE .STK-MED ONE Lab/Rad Data: Laboratory Result Diagrams 02/04/18 23:45 Laboratory Results 02/04/18 02/04/18 Range/Units 23:45 23:45 Sodium 140 (137-145) mmol/L Potassium 4.0 (3.5-5.1) mmol/L Chloride 101 (98-107) mmol/L Carbon Dioxide 26 (22-30) mmol/L Anion Gap 17.4 H (5-15) MEQ/L BUN 16 (7-17) mg/dL Creatinine 0.81 (0.52-1.04) mg/dL Estimated GFR > 60.0 ML/MIN Glucose 153 H (74-106) mg/dL Calcium 10.0 (8.4-10.2) mg/dL Troponin I < 0.012 (0.000-0.034) ng/mL - Progress Progress: improved Progress Note: 02/05/18 00:05 ATTEMPTED INTRAVENOUS ACCESS, UNSUCCESSFUL X 4, MOTHER REFUSED FURTHER ATTEMPTS. ALL LABS REVIEWED AND ARE NORMAL TROPONIN < 0.012 02/05/18 01:03 ADMINISTERED METOPROLOL 25MG ORALLY 02/05/18 01:04 Discussed with : Dino (DISCUSSED WITH DR SLOAN AT 0040 FOR OBSERVATION) - Departure Time of Disposition: 01:05 Departure Disposition: Observation Clinical Impression: TACHYARRHYTHMIA, PLEURISY Condition: Stable Critical Care Time: No Referrals: LAINEY SLOAN MD [Primary Care Provider] -
[2018-02-05 00:06] LABS: ANION GAP 17.4 MEQ/L (5-15); BLOOD UREA NITROGEN 16 mg/dL (7-17); CHLORIDE 101 mmol/L (98-107); Carbon Dioxide 26 mmol/L (22-30); Creatinine 1 0.81 mg/dL (0.52-1.04); Glucose 153 mg/dL (74-106); SODIUM 140 mmol/L (137-145)
[2018-02-05] MEDS ORDERED: Lopressor 25MG Tab PO ONE (00:44)
[2018-02-05] MEDS ORDERED: Lopressor 25MG Tab ONE (00:47)
[2018-02-05] MEDS ORDERED: MILK OF MAGNESIA 30 ML PO PRN (01:07)
[2018-02-05] MEDS ORDERED: MAALOX ES 30 ML UNIT DOSE PO PRN (01:07)
[2018-02-05] MEDS ORDERED: Senokot-S Tablet PO PRN (01:07)
[2018-02-05] MEDS ORDERED: TYLENOL 325 MG PO PRN (01:07)
[2018-02-05 05:35] LABS: Risk Ratio 2.6
[2018-02-05 06:56] VITALS: BP 100/56; PULSE 80; O2SAT 98
--- NOTE | 2018-02-05 08:58 | XRAY ---
Indication: Chest pain. Comparison: January 02, 2018. Portable chest again demonstrates normal heart, lungs, and bony thorax with incidental tiny calcified granulomas. New electronic device overlies the cardiac silhouette.
--- NOTE | 2018-02-05 09:21 | PCM.HP ---
History of Present Illness - Chief Complaint Chief Complaint: Chest pain for 2-3 months, palpitations History of Present Illness: is a 22 year old female came to ER with c/o chest pain and palpitations for 2-3 months. Patient recently saw director of cardiac rehabilitation and holter monitor was put on. - Review of Systems Constitutional: No Fever, No Chills Eyes: No Symptoms Ears, Nose, & Throat: No Symptoms Respiratory: No Cough, No Short Of Breath Cardiac: Chest Pain, Palpitations, No Edema, No Syncope Abdominal/Gastrointestinal: No Abdominal Pain, No Nausea, No Vomiting, No Diarrhea Genitourinary Symptoms: No Dysuria Musculoskeletal: No Back Pain, No Neck Pain Skin: No Rash Neurological: No Dizziness, No Focal Weakness, No Sensory Changes Psychological: No Symptoms Endocrine: No Symptoms Hematologic/Lymphatic: No Symptoms Immunological/Allergic: No Symptoms Medications & Allergies Home Medications: Home Medication List Norgestimate-Ethinyl Estradiol [Tri-Sprintec] 1 tab DAILY 01/02/18 [History Confirmed 02/04/18] Metoprolol Succinate 25 mg Xl* [Toprol-Xl 25MG Tablets] 25 mg PO DAILY #30 tab 01/04/18 [Rx Confirmed 02/04/18] Allergies/Adverse Reactions: Allergies Allergy/AdvReac Type Severity Reaction Status Date / Time No Known Drug Allergies Allergy Verified 01/02/18 17:08 - Past Medical History Past Medical History: Yes Neurological History: No Pertinent History ENT History: No Pertinent History Cardiac History: Other Respiratory History: Bronchitis Endocrine Medical History: No Pertinent History Musculoskelatal History: No Pertinent History GI Medical History: No Pertinent History History: No Pertinent History Pyscho-Social History: Anxiety Reproductive Disorders: No Pertinent History Comment: HEART MURMUR, TACHYCARDIA, A-FIBB - Female History Are you now?: No - Past Surgical History Past Surgical History: Yes Neuro Surgical History: No Pertinent History Cardiac History: No Pertinent History Respiratory Surgery: No Pertinent History GI Surgical History: No Pertinent History Genitourinary Surgical Hx: Kidney Surgery Musculskeletal Surgical Hx: No Pertinent History Female Surgical History: No Pertinent History Other Surgical History: kidney surgery as baby - Social History Smoking Status: Never smoker Exposure to second hand smoke: No Alcohol: None Drug Use: none - Physical Exam Vital Signs: Vital Signs - 24 hr Temp Pulse Pulse Resp BP Pulse Ox 02/05/18 06:54 80 20 100/56 98 02/05/18 06:15 96 02/05/18 04:00 97.8 F 83 198 H 99/55 94 L 02/05/18 01:58 98.5 F 101 H 18 130/68 96 02/05/18 01:12 98 02/05/18 00:40 113 H 104/74 96 02/04/18 23:50 116 H 30 H 118/72 96 02/04/18 23:42 142 H 23 137/98 98 02/04/18 22:24 124 H 129 H 20 138/103 94 L General Appearance: no apparent distress, alert Neurologic Exam: alert, oriented x 3, cooperative, normal mood/affect, nml cerebellar function, nml station & gait, sensation nml, No motor deficits Eye Exam: PERRL/EOMI, eyes nml inspection Ears, Nose, Throat Exam: normal ENT inspection, TMs normal, pharynx normal, moist mucous membranes Neck Exam: normal inspection, non-tender, supple, full range of motion Respiratory Exam: normal breath sounds, lungs clear, No respiratory distress Cardiovascular Exam: regular rate/rhythm, normal heart sounds, normal peripheral pulses Gastrointestinal/Abdomen Exam: soft, normal bowel sounds, No tenderness, No mass Back Exam: normal inspection, normal range of motion, No CVA tenderness, No vertebral tenderness Extremity Exam: normal inspection, normal range of motion, pelvis stable Skin Exam: normal color, warm, dry, No rash Lymphatic Exam: No adenopathy Results - Labs Lab/Micro Results: Lab Results-Last 24 Hours 02/04/18 02/04/18 02/05/18 Range/Units 23:45 23:45 03:00 Sodium 140 (137-145) mmol/L Potassium 4.0 (3.5-5.1) mmol/L Chloride 101 (98-107) mmol/L Carbon Dioxide 26 (22-30) mmol/L Anion Gap 17.4 H (5-15) MEQ/L BUN 16 (7-17) mg/dL Creatinine 0.81 (0.52-1.04) mg/dL Estimated GFR > 60.0 ML/MIN Glucose 153 H (74-106) mg/dL Calcium 10.0 (8.4-10.2) mg/dL Troponin I < 0.012 < 0.012 (0.000-0.034) ng/mL Triglycerides (30-150) mg/dL Cholesterol (50-200) mg/dL LDL Cholesterol (30-100) mg/dL HDL Cholesterol (40-60) mg/dL Heart Disease Risk Ratio 02/05/18 02/05/18 Range/Units 03:00 05:50 Sodium (137-145) mmol/L Potassium (3.5-5.1) mmol/L Chloride (98-107) mmol/L Carbon Dioxide (22-30) mmol/L Anion Gap (5-15) MEQ/L BUN (7-17) mg/dL Creatinine (0.52-1.04) mg/dL Estimated GFR ML/MIN Glucose (74-106) mg/dL Calcium (8.4-10.2) mg/dL Troponin I < 0.012 (0.000-0.034) ng/mL Triglycerides 163 H (30-150) mg/dL Cholesterol 137 (50-200) mg/dL LDL Cholesterol 63 (30-100) mg/dL HDL Cholesterol 52 (40-60) mg/dL Heart Disease Risk Ratio 2.6 - Radiology Impressions Radiology Exams & Impressions: Radiology Procedures Category Date Time Status CHEST 1 VIEW (PORTABLE) Stat Exams 02/05/18 01:06 Completed - Other Procedures and Tests Respiratory Therapy 02/06/18 05:00 EKG DAILY 02/07/18 05:00 EKG DAILY 02/08/18 05:00 EKG DAILY Assessment/Plan (1) Chest pain Current Visit: Yes Status: Acute Qualifiers: Chest pain type: chest pain on breathing Qualified Code(s): R07.1 - Chest pain on breathing; R07.81 - Pleurodynia Assessment & Plan: Last Vital Signs Temp 97.8 F 02/05/18 04:00 Pulse 80 02/05/18 06:54 Resp 20 02/05/18 06:54 BP 100/56 02/05/18 06:54 Pulse Ox 98 02/05/18 06:54 Allergies No Known Drug Allergies Allergy (Verified 01/02/18 17:08) Active Medications Acetaminophen (Tylenol 325 Mg) 650 mg PO Q4H PRN PRN PRN Reason: PAIN AND/OR FEVER Stop: 03/07/18 01:06 Al Hydrox/Mg Hydrox/Simethicone (Maalox Es 30 Ml Unit Dose) 30 ml PO Q4H PRN PRN PRN Reason: INDIGESTION Stop: 03/07/18 01:06 Aspirin (Ecotrin 325 Mg) 325 mg PO DAILY [facility] Stop: 03/07/18 09:59 Magnesium Hydroxide (Milk Of Magnesia 30 Ml) 30 - 60 ml PO QDP PRN PRN Reason: CONSTIPATION Stop: 03/07/18 01:06 Metoprolol Succinate (Toprol Xl 50 Mg) 50 mg PO DAILY [facility] Stop: 03/07/18 09:59 Senna/Docusate Sodium (Senokot-S Tablet) 2 udtab PO BID PRN PRN PRN Reason: CONSTIPATION Stop: 03/07/18 01:06 Intake & Output 02/04/18 02/05/18 11:59 11:59 Intake Total 290 Output Total 200 Balance 90 Weight 99.79 kg Lab Tests 02/04/18 02/04/18 02/05/18 23:45 23:45 03:00 Sodium 140 Potassium 4.0 Chloride 101 Carbon Dioxide 26 Anion Gap 17.4 H BUN 16 Creatinine 0.81 Estimated GFR > 60.0 Glucose 153 H Calcium 10.0 Troponin I < 0.012 < 0.012 Triglycerides Cholesterol LDL Cholesterol HDL Cholesterol Heart Disease Risk Ratio 02/05/18 02/05/18 03:00 05:50 Sodium Potassium Chloride Carbon Dioxide Anion Gap BUN Creatinine Estimated GFR Glucose Calcium Troponin I < 0.012 Triglycerides 163 H Cholesterol 137 LDL Cholesterol 63 HDL Cholesterol 52 Heart Disease Risk Ratio 2.6 Code(s): R07.9 - CHEST PAIN, UNSPECIFIED (2) Palpitations Current Visit: Yes Status: Acute Code(s): R00.2 - PALPITATIONS
--- NOTE | 2018-02-05 09:26 | PCM.DCORD ---
- Discharge Discharge Date: 02/05/18 Disposition: Home, Self-Care Condition: Stable Prescriptions: Continue Norgestimate-Ethinyl Estradiol [Tri-Sprintec] 1 tab DAILY Changed Metoprolol Succinate 25 mg Xl* [Toprol-Xl 25MG Tablets] 50 mg PO DAILY # 30 tab Follow up with: LAINEY SLOAN MD [Primary Care Provider] - 02/12/18 10:00 am (at [facility] )
[2018-02-05] MEDS ORDERED: MEDICATION INTERVENTION MC SCH (09:55)
[2018-02-05] MEDS ORDERED: Toprol Xl 50 MG PO SCH (10:00)
[2018-02-05] MEDS ORDERED: Toprol-Xl 25MG Tablets PO SCH (10:00)
[2018-02-05] MEDS ORDERED: Ecotrin 325 MG PO SCH (10:00)
[2018-02-06] MEDS ORDERED: NORGESTIMATE ETHINYL ESTRADIOL PO SCH (10:00)
== END 2018-02-05 09:55 | disposition home or self-care (01) ==
LOC: ED 22:23 → MED SURG 02-05 01:14
PROVIDERS: ADMIT General Practice; ATTEND General Practice
DX: R00.2 Palpitations (principal); R07.9 Chest pain, unspecified; R07.1 Chest pain on breathing
CPT/HCPCS: 36415; 71045; 80048; 80061; 83721; 84484; 85025; 93005; 93041; 93268; 94762; 99285; A9270-GY; G0378

== ENCOUNTER 2018-04-24 11:48 | Emergency (ER) | payer OTHER ==
[2018-04-24] MEDS ORDERED: Sodium Chloride 0.9% 1000 ML 1,000 ML IV SCH (12:30)
[2018-04-24] MEDS ORDERED: Sodium Chloride 0.9% 1000 ML 1,000 ML ONE (12:37)
[2018-04-24 12:50] LABS: BASOPHIL % 0.1 % (0.0-0.4); Basophil (Absolute #) 0.02 (0-0.4); Eosinophil % 0.1 % (0.00-5.0); Eosinophil (Absolute #) 0.01 (0-0.5); Granulocyte Absolute (ANC) 12.79 (1.4-6.9); Granulocytes % 80.3 % (36.0-66.0); Hematocrit 40.2 % (35-47); Hemoglobin 12.6 gm/dl (12.0-16.0); Lymphocyte (Absolute #) 1.63 (1.0-4.6); Lymphocytes % 10.2 % (24.0-44.0); Mean Cell Volume 83.9 fl (78-100); Mean Corpuscular Hemoglobin 26.3 pg (26-32); Mean Corpuscular Hgb Concent. 31.3 g/dl (32-36); Mean Platelet Volume 9.5 fl (6-9.5); Monocyte (Absolute #) 1.49 (0.0-1.3); Monocytes % 9.3 % (0.0-12.0); Platelet Count 371 K/mm3 (150-450); Red Blood Count 4.79 M/mm3 (4.1-5.4); Red Cell Distribution Width 14.7 % (11.5-14.0); White Blood Count 15.9 K/mm3 (4.0-10.5)
[2018-04-24 12:54] LABS: ALBUMIN 4.4 g/dL (3.5-5.0); ALKALINE PHOSPHATASE 70 U/L (38-126); ANION GAP 15.5 MEQ/L (5-15); BLOOD UREA NITROGEN 14 mg/dL (7-17); CHLORIDE 101 mmol/L (98-107); Calcium 9.4 mg/dL (8.4-10.2); Carbon Dioxide 27 mmol/L (22-30); Creatinine 1 0.85 mg/dL (0.52-1.04); Glucose 105 mg/dL (74-106); Potassium 3.9 mmol/L (3.5-5.1); SGOT/AST 21 U/L (14-36); SGPT/ALT 32 U/L (0-35); SODIUM 140 mmol/L (137-145); Total Protein 7.9 g/dL (6.3-8.2)
--- NOTE | 2018-04-24 13:30 | XRAY ---
Indication: Chest pain/pressure. Comparison: February 05, 2018. PA/lateral chest again demonstrates normal heart, lungs, and bony thorax with a few incidental calcified granulomas.
[2018-04-24 13:45] VITALS: BP 110/80; PULSE 96
[2018-04-24 13:50] VITALS: O2SAT 98
--- NOTE | 2018-04-24 13:50 | ERPHSYRPT ---
- History of Present Illness Historian: patient Exam Limitations: no limitations Patient Subjective Stated Complaint: chest pain, shortness of breath, cough, sore throat, numbness in the face and bilateral hand finger tips Triage Nursing Assessment: Pt c/o of chest pain, shortness of breath, numbness in her face and bilateral hand fingertips, headache, tachycardic, tachypnea, T 99.1, pulses normal, lungs clear, refuses IV to be started without set up machinist present, rates pain 4/10 but was a 6/10, doesn't appear to be in any distress Physician History: Pt states that she was doing her home work today, when suddenly developed chest pressure, sub sternal, numbness in her face and palpitations. She denies F/C/ S. No SOB or cough. No N/V/D or abdominal pain. Pt is on Zithromax, and Prednisone, for previous diagnosed bronchitis. Timing/Duration: today Activities at Onset: none Quality: sharpness Location: substernal Chest Pain Radiation: arm Aspirin Treatment Today: no aspirin today (Pt has no PR or ACS, and did not require it.) Allergies/Adverse Reactions: Penicillins Allergy (Verified 04/24/18 12:05) Home Medications: Azithromycin 250 mg [Zithromax 250 MG TABLET] 250 mg PO ZPACK 04/24/18 [ History] Methylprednisolone 4 mg [Medrol 4 mg] 4 mg PO UD 04/24/18 [History] Hx Tetanus, Diphtheria Vaccination/Date Given: Yes Hx Influenza Vaccination/Date Given: Yes Hx Pneumococcal Vaccination/Date Given: No - Review of Systems Constitutional: No Fever, No Chills Ears, Nose, & Throat: No Symptoms Respiratory: No Cough, No Dyspnea Cardiac: Chest Pain, Palpitations Abdominal/Gastrointestinal: No Symptoms Genitourinary Symptoms: No Dysuria Musculoskeletal: No Back Pain, No Neck Pain Neurological: Parasthesia (of the left face) - Past Medical History Pertinent Past Medical History: Yes Neurological History: No Pertinent History ENT History: No Pertinent History Cardiac History: Other Respiratory History: Bronchitis Endocrine Medical History: No Pertinent History Musculoskeletal History: No Pertinent History GI Medical History: No Pertinent History History: No Pertinent History Psycho-Social History: Anxiety Female Reproductive Disorders: No Pertinent History Other Medical History: HEART MURMUR, TACHYCARDIA, A-FIBB - Past Surgical History Past Surgical History: Yes Neuro Surgical History: No Pertinent History Cardiac: No Pertinent History Respiratory: No Pertinent History Gastrointestinal: No Pertinent History Genitourinary: Kidney Surgery Musculoskeletal: No Pertinent History Female Surgical History: No Pertinent History Other Surgical History: kidney surgery as baby - Social History Smoking Status: Never smoker Exposure to second hand smoke: No Drug Use: none Patient Lives Alone: No - Female History Hx Last Menstrual Period: unknown Hx Now: ([place]) - Nursing Vital Signs Nursing Vital Signs: Initial Vital Signs Temperature 99.1 F 04/24/18 11:54 Pulse Rate 109 H 04/24/18 11:54 Respiratory Rate 29 H 04/24/18 11:54 Blood Pressure 128/73 04/24/18 11:54 O2 Sat by Pulse Oximetry 99 04/24/18 11:54 Pain Scale Pain Intensity 4 - Physical Exam General Appearance: no apparent distress, alert Eye Exam: PERRL/EOMI, eyes nml inspection Ears, Nose, Throat Exam: normal ENT inspection, moist mucous membranes Neck Exam: normal inspection, non-tender, supple, full range of motion Respiratory Exam: normal breath sounds, lungs clear, No respiratory distress Cardiovascular Exam: regular rate/rhythm, normal heart sounds Gastrointestinal/Abdomen Exam: soft, No tenderness, No mass Extremity Exam: normal inspection, normal range of motion Neurologic Exam: alert, oriented x 3, cooperative, normal mood/affect, sensation nml, No motor deficits SpO2: 98 - Course Nursing assessment & vital signs reviewed: Yes EKG Interpreted by Me: Sinus Rhythm Ordered Tests: Active Orders 24 hr Category Date Time Status Oxygen-ED Only Nasal Cannula 2 lpm Care 04/24/18 12:26 Active CHEST 2 VIEWS (PA AND LAT) Stat Exams 04/24/18 13:16 Completed CBC W DIFF Stat Lab 04/24/18 12:40 Completed CMP Stat Lab 04/24/18 12:40 Completed D-DIMER QUANTITATION Stat Lab 04/24/18 12:40 Completed HCG QUALITATIVE,SERUM Stat Lab 04/24/18 12:40 Completed HCG,QUALITATIVE URINE Stat Lab 04/24/18 Uncollected TROPONIN Q3H Lab 04/24/18 12:40 Completed TROPONIN Q3H Lab 04/24/18 15:30 Ordered TROPONIN Q3H Lab 04/24/18 18:30 Ordered TROPONIN Q3H Lab 04/24/18 21:30 Ordered TROPONIN Q3H Lab 04/25/18 00:30 Ordered Medication Summary Generic Name Dose Route Start Last Admin Trade Name [place] PRN Reason Stop Dose Admin Sodium Chloride 1,000 mls @ 100 mls/hr 04/24/18 12:30 04/24/18 12:42 Sodium Chloride 0.9% 1000 Ml IV 05/24/18 12:29 100 mls/hr .Q10H KIM Administration Lab/Rad Data: Laboratory Result Diagrams 04/24/18 12:40 04/24/18 12:40 Laboratory Results 04/24/18 04/24/18 04/24/18 Range/Units 12:40 12:40 12:40 WBC (4.0-10.5) K/mm3 RBC (4.1-5.4) M/mm3 Hgb (12.0-16.0) gm/dl Hct (35-47) % MCV (78-100) fl MCH (26-32) pg MCHC (32-36) g/dl RDW (11.5-14.0) % Plt Count (150-450) K/mm3 MPV (6-9.5) fl Gran % (36.0-66.0) % Eos # (Auto) (0-0.5) Absolute Lymphs (auto) (1.0-4.6) Absolute Monos (auto) (0.0-1.3) Lymphocytes % (24.0-44.0) % Monocytes % (0.0-12.0) % Eosinophils % (0.00-5.0) % Basophils % (0.0-0.4) % Absolute Granulocytes (1.4-6.9) Basophils # (0-0.4) D-Dimer 249 (215-500) ng/mL Sodium (137-145) mmol/L Potassium (3.5-5.1) mmol/L Chloride (98-107) mmol/L Carbon Dioxide (22-30) mmol/L Anion Gap (5-15) MEQ/L BUN (7-17) mg/dL Creatinine (0.52-1.04) mg/dL Estimated GFR ML/MIN Glucose (74-106) mg/dL Calcium (8.4-10.2) mg/dL Total Bilirubin (0.2-1.3) mg/dL AST (14-36) U/L ALT (0-35) U/L Alkaline Phosphatase (38-126) U/L Troponin I < 0.012 (0.000-0.034) ng/mL Serum Total Protein (6.3-8.2) g/dL Albumin (3.5-5.0) g/dL Serum , Qual NEGATIVE (Negative) 04/24/18 04/24/18 Range/Units 12:40 12:40 WBC 15.9 H (4.0-10.5) K/mm3 RBC 4.79 (4.1-5.4) M/mm3 Hgb 12.6 (12.0-16.0) gm/dl Hct 40.2 (35-47) % MCV 83.9 (78-100) fl MCH 26.3 (26-32) pg MCHC 31.3 L (32-36) g/dl RDW 14.7 H (11.5-14.0) % Plt Count 371 (150-450) K/mm3 MPV 9.5 (6-9.5) fl Gran % 80.3 H (36.0-66.0) % Eos # (Auto) 0.01 (0-0.5) Absolute Lymphs (auto) 1.63 (1.0-4.6) Absolute Monos (auto) 1.49 H (0.0-1.3) Lymphocytes % 10.2 L (24.0-44.0) % Monocytes % 9.3 (0.0-12.0) % Eosinophils % 0.1 (0.00-5.0) % Basophils % 0.1 (0.0-0.4) % Absolute Granulocytes 12.79 H (1.4-6.9) Basophils # 0.02 (0-0.4) D-Dimer (215-500) ng/mL Sodium 140 (137-145) mmol/L Potassium 3.9 (3.5-5.1) mmol/L Chloride 101 (98-107) mmol/L Carbon Dioxide 27 (22-30) mmol/L Anion Gap 15.5 H (5-15) MEQ/L BUN 14 (7-17) mg/dL Creatinine 0.85 (0.52-1.04) mg/dL Estimated GFR > 60.0 ML/MIN Glucose 105 (74-106) mg/dL Calcium 9.4 (8.4-10.2) mg/dL Total Bilirubin 0.30 (0.2-1.3) mg/dL AST 21 (14-36) U/L ALT 32 (0-35) U/L Alkaline Phosphatase 70 (38-126) U/L Troponin I (0.000-0.034) ng/mL Serum Total Protein 7.9 (6.3-8.2) g/dL Albumin 4.4 (3.5-5.0) g/dL Serum , Qual (Negative) - Progress Progress: improved Air Movement: fair Progress Note: 04/24/18 13:54 Pt had labs, EKG, D Dimer and troponins done, that were unremarkable. Her WBCs are elevated, as she is on steroids. CXR is normal. I offered the pt to change her ABX, but the pt and family decided to continue on current therapy and f/u with her PCP as out pt. Blood Culture(s) Obtained: No Antibiotics given: No Will see patient in: office Counseled pt/family regarding: need for follow-up - Departure Time of Disposition: 13:55 Departure Disposition: Home Clinical Impression: Chest pain Condition: Stable Critical Care Time: No Referrals: LAINEY SLOAN MD [Primary Care Provider] - Additional Instructions: F/U with your PCP as out pt.
== END 2018-04-24 14:05 | disposition home or self-care (01) ==
LOC: ED 11:48
DX: R07.89 Other chest pain (principal); F41.9 Anxiety disorder, unspecified
CPT/HCPCS: 36000; 36415; 71046; 80053; 81025; 84484; 85025; 85379; 96360; 99284

== ENCOUNTER 2018-05-20 19:16 | Emergency (ER) | payer OTHER ==
[2018-05-20 19:33] VITALS: BP 144/86; PULSE 105; O2SAT 96
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
== END 2018-05-20 20:35 | disposition home or self-care (01) ==
LOC: ED 19:16
DX: S00.93XA Contusion of unspecified part of head, initial encounter (principal); Y04.2XXA Assault by strike against or bumped into by another person, initial encounter; Y92.219 Unspecified school as the place of occurrence of the external cause; M79.641 Pain in right hand; R22.0 Localized swelling, mass and lump, head; F41.9 Anxiety disorder, unspecified
CPT/HCPCS: 73130; 99283

== ENCOUNTER 2018-09-25 22:11 | Emergency (ER) | payer OTHER ==
--- NOTE | 2018-09-25 22:15 | ERPHSYRPT ---
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 pt denies vomiting, denies diarrhea, denies vaginal bleeding. pain is sharp and intermittently radiates to back. pt had a vaginal ultrasound and it revealed a single live intrauterine fetus. pt denies cp and denies soa. Timing/Duration: today, sudden, other (not resolving. ) Quality: sharpness, stabbing Abdominal Pain Onset Location: suprapubic Pain Radiation: back Severity of Pain-Max: moderate Severity of Pain-Current: moderate (pt refusing pain meds at this time.) Modifying Factors: Improves With: eating (pt did eat pizza rolls before episode began. ) Associated Symptoms: nausea, No back, No fever/chills, No vomiting, No weakness Previous symptoms: no prior history Allergies/Adverse Reactions: Penicillins Allergy (Verified 05/20/18 19:33) Sulfa (Sulfonamide Antibiotics) Allergy (Verified 05/20/18 19:33) Home Medications: Pnv No.95/Ferrous Fum/Folic AC [ Vitamin Tablet] 1 each PO DAILY [History] Hx Tetanus, Diphtheria Vaccination/Date Given: Yes Hx Influenza Vaccination/Date Given: Yes Hx Pneumococcal Vaccination/Date Given: No - Review of Systems Constitutional: No Symptoms Eyes: No Symptoms Ears, Nose, & Throat: No Symptoms Respiratory: No Symptoms Cardiac: No Symptoms Abdominal/Gastrointestinal: Abdominal Pain (bilat suprapubic pain.) Genitourinary Symptoms: No Symptoms, No Dysuria, No Frequency, No Hematuria, No Vaginal Bleeding Musculoskeletal: No Symptoms Skin: No Symptoms Neurological: No Symptoms Psychological: No Symptoms Endocrine: No Symptoms Hematologic/Lymphatic: No Symptoms Immunological/Allergic: No Symptoms All Other Systems: Reviewed and Negative - Past Medical History Pertinent Past Medical History: Yes Neurological History: No Pertinent History ENT History: No Pertinent History Cardiac History: Other Respiratory History: Bronchitis Endocrine Medical History: No Pertinent History Musculoskeletal History: No Pertinent History GI Medical History: No Pertinent History History: No Pertinent History Psycho-Social History: Anxiety Female Reproductive Disorders: No Pertinent History Other Medical History: HEART MURMUR, TACHYCARDIA, A-FIB- none for years - Past Surgical History Past Surgical History: Yes Neuro Surgical History: No Pertinent History Cardiac: No Pertinent History Respiratory: No Pertinent History Gastrointestinal: No Pertinent History Genitourinary: Kidney Surgery Musculoskeletal: No Pertinent History Female Surgical History: No Pertinent History Other Surgical History: kidney surgery as baby - Social History Smoking Status: Never smoker Exposure to second hand smoke: No Drug Use: none Patient Lives Alone: No - Nursing Vital Signs Nursing Vital Signs: Initial Vital Signs Temperature 98.7 F 09/25/18 22:31 Pulse Rate 119 H 09/25/18 22:31 Respiratory Rate 20 09/25/18 22:31 Blood Pressure 131/98 09/25/18 22:31 O2 Sat by Pulse Oximetry 100 09/25/18 22:31 Pain Scale Pain Intensity 6 - Physical Exam General Appearance: mild distress, alert, anxiety Eye Exam: PERRL/EOMI Ears, Nose, Throat Exam: normal ENT inspection, moist mucous membranes Neck Exam: normal inspection, non-tender, supple, full range of motion Respiratory Exam: normal breath sounds, lungs clear, airway intact, No chest tenderness, No respiratory distress Cardiovascular Exam: tachycardia Gastrointestinal/Abdomen Exam: soft, normal bowel sounds, tenderness (bilat suprapubic under pannus against abd wall), No distention, No guarding, No rebound Pelvic Exam: not done Rectal Exam: not done Back Exam: normal inspection, normal range of motion, No CVA tenderness, No vertebral tenderness Extremity Exam: normal inspection, normal range of motion, No pelvis stable Neurologic Exam: alert, oriented x 3, cooperative, infant caregiver II-XII nml as tested, nml cerebellar function, nml station & gait Skin Exam: normal color, warm, dry Lymphatic Exam: No adenopathy SpO2 Interpretation: normal O2 Delivery: Room Air Ordered Tests: Active Orders 24 hr Category Date Time Status IV Insertion STAT Care 09/25/18 22:22 Active AMYLASE Stat Lab 09/25/18 23:29 Completed CBC W DIFF Stat Lab 09/25/18 23:29 Completed CMP Stat Lab 09/25/18 23:29 Completed CULTURE,URINE Stat Lab 09/25/18 23:00 Received LIPASE Stat Lab 09/25/18 23:29 Completed Lactic Acid Stat Lab 09/25/18 23:18 Completed UA W/RFX UR CULTURE Stat Lab 09/25/18 23:00 Completed Medication Summary Discontinued Medications Generic Name Dose Route Start Last Admin Trade Name [place] PRN Reason Stop Dose Admin Sodium Chloride 1,000 mls @ 999 mls/hr 09/25/18 22:22 Sodium Chloride 0.9% 1000 Ml IV 09/25/18 23:22 .Q1H1M STA Ondansetron HCl 4 mg 09/25/18 22:22 Zofran 4 Mg/2 Ml Vial IV 09/25/18 22:23 STAT ONE Lab/Rad Data: Laboratory Result Diagrams 09/25/18 23:29 09/25/18 23:29 Laboratory Results 09/25/18 09/25/18 09/25/18 Range/Units 23:29 23:29 23:18 WBC 15.1 H (4.0-10.5) K/mm3 RBC 4.09 L (4.1-5.4) M/mm3 Hgb 11.2 L (12.0-16.0) gm/dl Hct 34.0 L (35-47) % MCV 83.1 (78-100) fl MCH 27.3 (26-32) pg MCHC 32.9 (32-36) g/dl RDW 13.9 (11.5-14.0) % Plt Count 346 (150-450) K/mm3 MPV 8.6 (6-9.5) fl Gran % 70.9 H (36.0-66.0) % Eos # (Auto) 0.23 (0-0.5) Absolute Lymphs (auto) 3.37 (1.0-4.6) Absolute Monos (auto) 0.75 (0.0-1.3) Lymphocytes % 22.4 L (24.0-44.0) % Monocytes % 5.0 (0.0-12.0) % Eosinophils % 1.5 (0.00-5.0) % Basophils % 0.2 (0.0-0.4) % Absolute Granulocytes 10.69 H (1.4-6.9) Basophils # 0.03 (0-0.4) Sodium 136 L (137-145) mmol/L Potassium 3.8 (3.5-5.1) mmol/L Chloride 101 (98-107) mmol/L Carbon Dioxide 25 (22-30) mmol/L Anion Gap 13.3 (5-15) MEQ/L BUN 8 (7-17) mg/dL Creatinine 0.51 L (0.52-1.04) mg/dL Estimated GFR > 60.0 ML/MIN Glucose 107 H (74-106) mg/dL Lactic Acid 1.1 (0.4-2.0) Calcium 9.6 (8.4-10.2) mg/dL Total Bilirubin 0.20 (0.2-1.3) mg/dL AST 11 L (14-36) U/L ALT 13 (0-35) U/L Alkaline Phosphatase 62 (38-126) U/L Serum Total Protein 7.2 (6.3-8.2) g/dL Albumin 3.9 (3.5-5.0) g/dL Amylase 65 (30-110) U/L Lipase 90 (23-300) U/L Urine Color (YELLOW) Urine Appearance (CLEAR) Urine pH (5-6) Ur Specific [place] (1.005-1.025) Urine Protein (Negative) Urine Ketones (NEGATIVE) Urine Blood (0-5) Anthony/ul Urine Nitrite (NEGATIVE) Urine Bilirubin (NEGATIVE) Urine Urobilinogen (0-1) mg/dL Ur Leukocyte Esterase (NEGATIVE) Urine WBC (Auto) (0-5) /HPF Urine RBC (Auto) (0-2) /HPF U Epithel Cells (Auto) (FEW) /HPF Urine Bacteria (Auto) (NEGATIVE) /HPF Urine Yeast (Budding) (NEGATIVE) /HPF Urine Culture Reflexed (NO) Urine Glucose (NEGATIVE) mg/dL 09/25/18 Range/Units 23:00 WBC (4.0-10.5) K/mm3 RBC (4.1-5.4) M/mm3 Hgb (12.0-16.0) gm/dl Hct (35-47) % MCV (78-100) fl MCH (26-32) pg MCHC (32-36) g/dl RDW (11.5-14.0) % Plt Count (150-450) K/mm3 MPV (6-9.5) fl Gran % (36.0-66.0) % Eos # (Auto) (0-0.5) Absolute Lymphs (auto) (1.0-4.6) Absolute Monos (auto) (0.0-1.3) Lymphocytes % (24.0-44.0) % Monocytes % (0.0-12.0) % Eosinophils % (0.00-5.0) % Basophils % (0.0-0.4) % Absolute Granulocytes (1.4-6.9) Basophils # (0-0.4) Sodium (137-145) mmol/L Potassium (3.5-5.1) mmol/L Chloride (98-107) mmol/L Carbon Dioxide (22-30) mmol/L Anion Gap (5-15) MEQ/L BUN (7-17) mg/dL Creatinine (0.52-1.04) mg/dL Estimated GFR ML/MIN Glucose (74-106) mg/dL Lactic Acid (0.4-2.0) Calcium (8.4-10.2) mg/dL Total Bilirubin (0.2-1.3) mg/dL AST (14-36) U/L ALT (0-35) U/L Alkaline Phosphatase (38-126) U/L Serum Total Protein (6.3-8.2) g/dL Albumin (3.5-5.0) g/dL Amylase (30-110) U/L Lipase (23-300) U/L Urine Color YELLOW (YELLOW) Urine Appearance CLOUDY (CLEAR) Urine pH 6.0 (5-6) Ur Specific [place] 1.015 (1.005-1.025) Urine Protein NEGATIVE (Negative) Urine Ketones NEGATIVE (NEGATIVE) Urine Blood SMALL (0-5) Anthony/ul Urine Nitrite NEGATIVE (NEGATIVE) Urine Bilirubin NEGATIVE (NEGATIVE) Urine Urobilinogen NEGATIVE (0-1) mg/dL Ur Leukocyte Esterase LARGE (NEGATIVE) Urine WBC (Auto) >100 (0-5) /HPF Urine RBC (Auto) >101 (0-2) /HPF U Epithel Cells (Auto) RARE (FEW) /HPF Urine Bacteria (Auto) RARE (NEGATIVE) /HPF Urine Yeast (Budding) Rare (NEGATIVE) /HPF Urine Culture Reflexed YES (NO) Urine Glucose NEGATIVE (NEGATIVE) mg/dL - Progress Progress: unchanged Progress Note: 09/26/18 00:06 pt has had keflex in past without issues. Counseled pt/family regarding: lab results, diagnosis, need for follow-up - Departure Departure Disposition: Home Clinical Impression: UTI (urinary tract infection) during Condition: Stable Critical Care Time: No Referrals: LAINEY SLOAN MD [Primary Care Provider] - Additional Instructions: drink plenty of fluids. use tylenol for pain. follow up with paint stripper today for further management Prescriptions: Cephalexin Mh 500 mg [Keflex 500 mg] 500 mg PO TID #21 capsule
[2018-09-25] MEDS ORDERED: Sodium Chloride 0.9% 1000 ML 1,000 ML IV STA (22:22)
[2018-09-25] MEDS ORDERED: Zofran 4 MG/2 ML VIAL IV ONE (22:22)
[2018-09-25 23:31] LABS: BASOPHIL % 0.2 % (0.0-0.4); Basophil (Absolute #) 0.03 (0-0.4); Eosinophil % 1.5 % (0.00-5.0); Eosinophil (Absolute #) 0.23 (0-0.5); Granulocyte Absolute (ANC) 10.69 (1.4-6.9); Granulocytes % 70.9 % (36.0-66.0); Hemoglobin 11.2 gm/dl (12.0-16.0); Lymphocyte (Absolute #) 3.37 (1.0-4.6); Lymphocytes % 22.4 % (24.0-44.0); Mean Cell Volume 83.1 fl (78-100); Mean Corpuscular Hgb Concent. 32.9 g/dl (32-36); Mean Platelet Volume 8.6 fl (6-9.5); Monocyte (Absolute #) 0.75 (0.0-1.3); Platelet Count 346 K/mm3 (150-450); Red Blood Count 4.09 M/mm3 (4.1-5.4); Red Cell Distribution Width 13.9 % (11.5-14.0); White Blood Count 15.1 K/mm3 (4.0-10.5)
[2018-09-25 23:38] LABS: Mean Corpuscular Hemoglobin 27.3 pg (26-32)
[2018-09-25 23:41] LABS: Appearance CLOUDY (CLEAR); Bacteria RARE /HPF (NEGATIVE); Bilirubin NEGATIVE (NEGATIVE); Blood SMALL Ery/ul (0-5); Epithelial Cells RARE /HPF (FEW); Glucose NEGATIVE (NEGATIVE); Ketones NEGATIVE (NEGATIVE); Leukocyte Esterase LARGE (NEGATIVE); Nitrite NEGATIVE (NEGATIVE); Protein,Urine Dip NEGATIVE (Negative); Specific Gravity 1.015 (1.005-1.025); Urobilinogen NEGATIVE mg/dL (0-1); WBC >100 /HPF (0-5)
[2018-09-25 23:42] LABS: ALBUMIN 3.9 g/dL (3.5-5.0); ALKALINE PHOSPHATASE 62 U/L (38-126); AMYLASE 65 U/L (30-110); ANION GAP 13.3 MEQ/L (5-15); BLOOD UREA NITROGEN 8 mg/dL (7-17); CHLORIDE 101 mmol/L (98-107); Calcium 9.6 mg/dL (8.4-10.2); Carbon Dioxide 25 mmol/L (22-30); Creatinine 1 0.51 mg/dL (0.52-1.04); Glucose 107 mg/dL (74-106); Potassium 3.8 mmol/L (3.5-5.1); SGOT/AST 11 U/L (14-36); SGPT/ALT 13 U/L (0-35); SODIUM 136 mmol/L (137-145); Total Protein 7.2 g/dL (6.3-8.2)
[2018-09-25 23:42] LABS: RBC >101 /HPF (0-2)
[2018-09-25 23:43] LABS: Budding Yeast Rare /HPF (NEGATIVE)
[2018-09-26] MEDS ORDERED: Rocephin 1000 MG INJ IM ONE (00:07)
[2018-09-26] MEDS ORDERED: Rocephin 1000 MG INJ ONE (00:14)
[2018-09-26 00:18] VITALS: BP 136/88; PULSE 106; O2SAT 97
== END 2018-09-26 00:30 | disposition home or self-care (01) ==
LOC: ED 22:11
DX: O23.42 Unspecified infection of urinary tract in pregnancy, second trimester (principal); Z3A.15 15 weeks gestation of pregnancy
CPT/HCPCS: 36000; 36415; 80053; 81001; 82150; 83605; 83690; 85025; 87086; 96372; 99284; J0696

== ENCOUNTER 2018-10-09 12:10 | Emergency (ER) | payer OTHER ==
[2018-10-09] MEDS ORDERED: Sodium Chloride 0.9% 1000 ML 1,000 ML IV STA (12:50)
--- NOTE | 2018-10-09 12:59 | ERPHSYRPT ---
- History of Present Illness Time Seen by Provider: 10/09/18 12:52 Source: patient Exam Limitations: no limitations Patient Subjective Stated Complaint: Pt suddenly began having cramps and spotting, she is due Mar 22 Triage Nursing Assessment: Pt walked into the ER holding her abdomen, stated that it feels like her stomach tightens up and then lets loose, tachycardic but this is normal for her, all other vitals wnl, reports that she had a UTI and just finished the meds approx 4-5 days ago, unable to differentiate between babys heart beat and hers, OB tried as well, hx of miscarriage at 8 weeks, has no children Physician History: 22-year-old white female with history of anxiety, heart murmur, tachycardia, atrial fibrillation who states she is a 16 weeks 2. 0 with estimated date of confinement of March 22, 2019. Arrives with lower abdominal pain and cramping and vaginal spotting onset since just prior to arrival no vomiting no vaginal discharge. Past medical history includes anxiety, heart murmur, tachycardia, atrial fibrillation past surgical history includes kidney surgery Timing/Duration: today (jjust prior to arrival) Severity: moderate Modifying Factors: Improves With: nothing Associated Symptoms: abdominal pain (ssuprapubic abdominal pain), other ( vaginal spotting), No nausea, No vomiting, No shortness of breath, No heartburn , No diaphoresis, No cough, No chills, No chest pain, No fever, No headaches, No loss of appetite, No malaise, No rash, No syncope, No seizure, No weakness Allergies/Adverse Reactions: dicyclomine Allergy (Verified 10/09/18 12:40) Penicillins Allergy (Verified 10/09/18 12:40) Sulfa (Sulfonamide Antibiotics) Allergy (Verified 10/09/18 12:40) Home Medications: Pnv No.95/Ferrous Fum/Folic AC [ Vitamin Tablet] 1 each PO DAILY [History] Hx Tetanus, Diphtheria Vaccination/Date Given: Yes Hx Influenza Vaccination/Date Given: Yes Hx Pneumococcal Vaccination/Date Given: No - Review of Systems Constitutional: No Fever, No Chills Eyes: No Symptoms Ears, Nose, & Throat: No Symptoms Respiratory: No Cough, No Dyspnea Cardiac: No Chest Pain, No Edema, No Syncope Abdominal/Gastrointestinal: Abdominal Pain, Other (suprapubic abdominal pain), No Nausea, No Vomiting, No Diarrhea Genitourinary Symptoms: (16 weeks ), Vaginal Bleeding ( vaginal spotting), No Dysuria, No Frequency, No Hematuria, No Hesitancy, No Incontinence, No Urgency, No Urinary Retention, No Flank Pain, No Menorrhagia, No Vaginal Discharge Musculoskeletal: No Back Pain, No Neck Pain Skin: No Rash Neurological: No Dizziness, No Focal Weakness, No Sensory Changes Psychological: No Symptoms Endocrine: No Symptoms All Other Systems: Reviewed and Negative - Past Medical History Pertinent Past Medical History: Yes Neurological History: No Pertinent History ENT History: No Pertinent History Cardiac History: Other Respiratory History: Bronchitis Endocrine Medical History: No Pertinent History Musculoskeletal History: No Pertinent History GI Medical History: No Pertinent History History: No Pertinent History Psycho-Social History: Anxiety Female Reproductive Disorders: No Pertinent History Other Medical History: HEART MURMUR, TACHYCARDIA, A-FIB- none for years - Past Surgical History Past Surgical History: Yes Neuro Surgical History: No Pertinent History Cardiac: No Pertinent History Respiratory: No Pertinent History Gastrointestinal: No Pertinent History Genitourinary: Kidney Surgery Musculoskeletal: No Pertinent History Female Surgical History: No Pertinent History Other Surgical History: kidney surgery as baby - Social History Smoking Status: Never smoker Exposure to second hand smoke: No Drug Use: none Patient Lives Alone: No - Female History Hx Now: Yes Expected Date of Delivery: 03/22/19 - Nursing Vital Signs Nursing Vital Signs: Initial Vital Signs Temperature 98.2 F 10/09/18 12:15 Pulse Rate 128 H 10/09/18 12:15 Blood Pressure 136/85 10/09/18 12:15 O2 Sat by Pulse Oximetry 98 10/09/18 12:15 Pain Scale Pain Intensity 0 - Physical Exam General Appearance: mild distress, alert Eye Exam: PERRL/EOMI, eyes nml inspection Ears, Nose, Throat Exam: normal ENT inspection, TMs normal, pharynx normal, moist mucous membranes Neck Exam: normal inspection, non-tender, supple, full range of motion Respiratory Exam: normal breath sounds, lungs clear, No respiratory distress Cardiovascular Exam: tachycardia, capillary refill <2 sec Gastrointestinal/Abdomen Exam: soft, normal bowel sounds, tenderness ( suprapubic tenderness), No mass Back Exam: normal inspection Extremity Exam: normal inspection, normal range of motion, pelvis stable Neurologic Exam: alert, oriented x 3, cooperative, photo tube assembler II-XII nml as tested, normal mood/affect, nml cerebellar function, nml station & gait, sensation nml, No motor deficits Skin Exam: normal color, warm, dry, No rash Lymphatic Exam: No adenopathy SpO2 Interpretation: normal (98%) SpO2: 98 - Course Nursing assessment & vital signs reviewed: Yes - Radiology Ultrasound Exam OB Ultrasound: discussed w/radiologist (OB ultrasound: Impression 16 week 5 day single live intrauterine fetus in the cephalic liewwith an estimated date of by size criteria good accordance with gestational age by date 16 weeks 4 days. 2. Placenta is posterior and right lateral.. No evidence of placenta previa or abruption 3. Normal amount of amniotic fluid is seen with the amniotic fluid index of 11.5 cm heart rate 149 beats per minute) Ordered Tests: Active Orders 24 hr Category Date Time Status EKG-ER Only STAT Care 10/09/18 13:33 Active IV Insertion STAT Care 10/09/18 12:50 Active OB >14 WKS 1st GESTATION [US] Stat Exams 10/09/18 12:51 Completed CBC W DIFF Stat Lab 10/09/18 13:05 Completed CMP Stat Lab 10/09/18 13:05 Completed CULTURE,URINE Stat Lab 10/09/18 12:58 Received HCG, Quantitative (Inhouse) Stat Lab 10/09/18 13:05 Completed UA W/RFX UR CULTURE Stat Lab 10/09/18 12:58 Completed Medication Summary Discontinued Medications Generic Name Dose Route Start Last Admin Trade Name Freq PRN Reason Stop Dose Admin Sodium Chloride 1,000 mls @ 999 mls/hr 10/09/18 12:50 10/09/18 14:18 Sodium Chloride 0.9% 1000 Ml IV 10/09/18 13:50 Infused .Q1H1M STA Infusion Sodium Chloride Confirm 10/09/18 13:14 Sodium Chloride 0.9% 1000 Ml Administered 10/09/18 13:15 Dose 1,000 mls @ ud .ROUTE .STK-MED ONE Ceftriaxone Sodium/Dextrose 1 g in 50 mls @ 100 mls/hr 10/09/18 14:35 15:17 Rocephin 1 Gm-D5w 50 Ml Bag IV 10/09/18 15:04 100 mls/hr STAT STA 100 mls/hr Administration Ceftriaxone Sodium/Dextrose Confirm 10/09/18 14:56 Rocephin 1 Gm-D5w 50 Ml Bag Administered 10/09/18 14:57 Dose 1 g in 50 mls @ ud IV .STK-MED ONE Lab/Rad Data: Laboratory Result Diagrams 10/09/18 13:05 10/09/18 13:05 Laboratory Results 10/09/18 10/09/18 10/09/18 Range/Units 13:05 13:05 13:05 WBC 12.3 H (4.0-10.5) K/mm3 RBC 4.21 (4.1-5.4) M/mm3 Hgb 11.4 L (12.0-16.0) gm/dl Hct 34.8 L (35-47) % MCV 82.7 (78-100) fl MCH 27.0 (26-32) pg MCHC 32.8 (32-36) g/dl RDW 14.4 H (11.5-14.0) % Plt Count 356 (150-450) K/mm3 MPV 8.4 (6-9.5) fl Gran % 73.5 H (36.0-66.0) % Eos # (Auto) 0.15 (0-0.5) Absolute Lymphs (auto) 2.51 (1.0-4.6) Absolute Monos (auto) 0.58 (0.0-1.3) Lymphocytes % 20.4 L (24.0-44.0) % Monocytes % 4.7 (0.0-12.0) % Eosinophils % 1.2 (0.00-5.0) % Basophils % 0.2 (0.0-0.4) % Absolute Granulocytes 9.04 H (1.4-6.9) Basophils # 0.03 (0-0.4) Sodium 137 (137-145) mmol/L Potassium 3.8 (3.5-5.1) mmol/L Chloride 105 (98-107) mmol/L Carbon Dioxide 22 (22-30) mmol/L Anion Gap 14.1 (5-15) MEQ/L BUN 8 (7-17) mg/dL Creatinine 0.52 (0.52-1.04) mg/dL Estimated GFR > 60.0 ML/MIN Glucose 121 H (74-106) mg/dL Calcium 9.4 (8.4-10.2) mg/dL Total Bilirubin 0.40 (0.2-1.3) mg/dL AST 14 (14-36) U/L ALT 15 (0-35) U/L Alkaline Phosphatase 63 (38-126) U/L Serum Total Protein 6.8 (6.3-8.2) g/dL Albumin 3.8 (3.5-5.0) g/dL Beta HCG, Quant 97497 mIU/ml Urine Color (YELLOW) Urine Appearance (CLEAR) Urine pH (5-6) Ur Specific [place] (1.005-1.025) Urine Protein (Negative) Urine Ketones (NEGATIVE) Urine Blood (0-5) Anthony/ul Urine Nitrite (NEGATIVE) Urine Bilirubin (NEGATIVE) Urine Urobilinogen (0-1) mg/dL Ur Leukocyte Esterase (NEGATIVE) Urine WBC (Auto) (0-5) /HPF Urine RBC (Auto) (0-2) /HPF U Epithel Cells (Auto) (FEW) /HPF Urine Bacteria (Auto) (NEGATIVE) /HPF Urine Culture Reflexed (NO) Urine Glucose (NEGATIVE) mg/dL ABO Group A Rh Factor POSITIVE Antibody Screen NEGATIVE (NEGATIVE) 10/09/18 Range/Units 12:58 WBC (4.0-10.5) K/mm3 RBC (4.1-5.4) M/mm3 Hgb (12.0-16.0) gm/dl Hct (35-47) % MCV (78-100) fl MCH (26-32) pg MCHC (32-36) g/dl RDW (11.5-14.0) % Plt Count (150-450) K/mm3 MPV (6-9.5) fl Gran % (36.0-66.0) % Eos # (Auto) (0-0.5) Absolute Lymphs (auto) (1.0-4.6) Absolute Monos (auto) (0.0-1.3) Lymphocytes % (24.0-44.0) % Monocytes % (0.0-12.0) % Eosinophils % (0.00-5.0) % Basophils % (0.0-0.4) % Absolute Granulocytes (1.4-6.9) Basophils # (0-0.4) Sodium (137-145) mmol/L Potassium (3.5-5.1) mmol/L Chloride (98-107) mmol/L Carbon Dioxide (22-30) mmol/L Anion Gap (5-15) MEQ/L BUN (7-17) mg/dL Creatinine (0.52-1.04) mg/dL Estimated GFR ML/MIN Glucose (74-106) mg/dL Calcium (8.4-10.2) mg/dL Total Bilirubin (0.2-1.3) mg/dL AST (14-36) U/L ALT (0-35) U/L Alkaline Phosphatase (38-126) U/L Serum Total Protein (6.3-8.2) g/dL Albumin (3.5-5.0) g/dL Beta HCG, Quant mIU/ml Urine Color YELLOW (YELLOW) Urine Appearance CLOUDY (CLEAR) Urine pH 6.0 (5-6) Ur Specific [place] 1.020 (1.005-1.025) Urine Protein 30 (Negative) Urine Ketones NEGATIVE (NEGATIVE) Urine Blood SMALL (0-5) Anthony/ul Urine Nitrite NEGATIVE (NEGATIVE) Urine Bilirubin NEGATIVE (NEGATIVE) Urine Urobilinogen NEGATIVE (0-1) mg/dL Ur Leukocyte Esterase LARGE (NEGATIVE) Urine WBC (Auto) 51-100 (0-5) /HPF Urine RBC (Auto) 51-100 (0-2) /HPF U Epithel Cells (Auto) FEW (FEW) /HPF Urine Bacteria (Auto) FEW (NEGATIVE) /HPF Urine Culture Reflexed YES (NO) Urine Glucose NEGATIVE (NEGATIVE) mg/dL ABO Group Rh Factor Antibody Screen (NEGATIVE) - Progress Progress: improved Progress Note: 10/09/18 14:54 Patient tells me that she has a prescription for Flagyl waiting for her which was prescribed by Dr. Wood for treatment of Trichomonas she has not started this or taken this is waiting at the [facility] Pelvic exam is performed is extremely limited secondary to pain at the introitus there is a moderate amount of white discharge no obvious blood is noted. Patient does have a urinary tract infection she'll be given Rocephin 1 g IV will write for Macrobid one orally twice a day for 10 days. Patient is to take Flagyl as prescribed. Patient is to followup with Dr. Wood. 10/09/18 14:56 Patient was tachycardia cardiac on arrival this is improved with 1 L of normal saline. Pelvic ultrasound intrauterine 16 weeks 5 days estimated gestational age fluid 11.5 no abnormalities noted. Urine GC and Chlamydia are pending. - Departure Departure Disposition: Home Clinical Impression: Vaginal spotting, Intrauterine , known Trichomonas infection Qualifiers: Weeks of gestation: 16 weeks Qualified Code(s): Z3A.16 - 16 weeks gestation of UTI (urinary tract infection) Qualifiers: Urinary tract infection type: acute cystitis Hematuria presence: without hematuria Qualified Code(s): N30.00 - Acute cystitis without hematuria Condition: Fair Critical Care Time: No Referrals: CALVIN DELANEY [Primary Care Provider] - Instructions: Bleeding With (DC) Additional Instructions: Return home. Macrobid as directed. Flagyl as prescribed by your EMERGENCY PHYSICIAN physician call today and schedule followup appointment. Plenty of fluids. Followup with your EMERGENCY PHYSICIAN physician. Return for acute distress or for severe symptoms Prescriptions: Nitrofurantoin Macro 100 mg [Macrobid 100MG Capsule] 100 mg PO BID #20 cap
[2018-10-09] MEDS ORDERED: Sodium Chloride 0.9% 1000 ML 1,000 ML ONE (13:14)
[2018-10-09 13:24] LABS: BASOPHIL % 0.2 % (0.0-0.4); Basophil (Absolute #) 0.03 (0-0.4); Eosinophil % 1.2 % (0.00-5.0); Eosinophil (Absolute #) 0.15 (0-0.5); Granulocyte Absolute (ANC) 9.04 (1.4-6.9); Granulocytes % 73.5 % (36.0-66.0); Hematocrit 34.8 % (35-47); Hemoglobin 11.4 gm/dl (12.0-16.0); Lymphocyte (Absolute #) 2.51 (1.0-4.6); Lymphocytes % 20.4 % (24.0-44.0); Mean Cell Volume 82.7 fl (78-100); Mean Corpuscular Hgb Concent. 32.8 g/dl (32-36); Mean Platelet Volume 8.4 fl (6-9.5); Monocyte (Absolute #) 0.58 (0.0-1.3); Monocytes % 4.7 % (0.0-12.0); Platelet Count 356 K/mm3 (150-450); Red Blood Count 4.21 M/mm3 (4.1-5.4); Red Cell Distribution Width 14.4 % (11.5-14.0); White Blood Count 12.3 K/mm3 (4.0-10.5)
[2018-10-09 13:29] LABS: Appearance CLOUDY (CLEAR); Bacteria FEW /HPF (NEGATIVE); Bilirubin NEGATIVE (NEGATIVE); Blood SMALL Ery/ul (0-5); Epithelial Cells FEW /HPF (FEW); Glucose NEGATIVE (NEGATIVE); Ketones NEGATIVE (NEGATIVE); Leukocyte Esterase LARGE (NEGATIVE); Nitrite NEGATIVE (NEGATIVE); Protein,Urine Dip 30 (Negative); RBC 51-100 /HPF (0-2); Urobilinogen NEGATIVE mg/dL (0-1); WBC 51-100 /HPF (0-5)
[2018-10-09 13:51] LABS: ALBUMIN 3.8 g/dL (3.5-5.0); ALKALINE PHOSPHATASE 63 U/L (38-126); ANION GAP 14.1 MEQ/L (5-15); BLOOD UREA NITROGEN 8 mg/dL (7-17); CHLORIDE 105 mmol/L (98-107); Calcium 9.4 mg/dL (8.4-10.2); Carbon Dioxide 22 mmol/L (22-30); Creatinine 1 0.52 mg/dL (0.52-1.04); Glucose 121 mg/dL (74-106); Potassium 3.8 mmol/L (3.5-5.1); SGOT/AST 14 U/L (14-36); SGPT/ALT 15 U/L (0-35); SODIUM 137 mmol/L (137-145); Total Protein 6.8 g/dL (6.3-8.2)
[2018-10-09 13:57] LABS: ABO TYPING A; Antibody Screen NEGATIVE (NEGATIVE); RH TYPING POSITIVE
[2018-10-09 14:16] LABS: HCG, Quantitative (Inhouse) 47397 mIU/ml
--- NOTE | 2018-10-09 14:24 | XRAY ---
Exam: OB ultrasound greater than 14 weeks from 10/09/2018. Comparison: None. Indication: Abdominal pain, patient , vaginal spotting. Findings: Multiple transabdominal sonogram images were obtained. A single live intrauterine fetus is seen in the cephalic lie. body motion was seen by the radiation therapy technologist. cardiac activity measured 149 bpm. The placenta is posterior and right lateral. There is no evidence of placenta previa or abruption. A normal amount of amniotic fluid is seen with an amniotic fluid index of 11.5 cm. Measurements of the biparietal diameter, head circumference, abdominal circumference, and femur length suggest an average composite gestational age of 16 weeks 5 days plus or -1 week 1 day yielding an estimated due date of 03/21/2019. This is in excellent accordance with the gestational age by dates of 16 weeks 4 days. Estimated weight measures 164.9 g plus or -24.7 g (6 ounces plus or -1 ounce) placing the fetus in the 49.3 percentile. A four-chamber heart was identified. Fluid is seen within the stomach and the urinary bladder. The diaphragm was identified. The kidneys are identified. A full detailed anatomical scan was not performed. Impression: 1. 16 week 5 day single live intrauterine fetus in the cephalic lie with an estimated due date of 03/21/2019 by size criteria. This is in good accordance with the gestational age by dates (16 weeks 4 days). 2. The placenta is posterior and right lateral. There is no evidence of placenta previa or abruption. 3. A normal amount of amniotic fluid is seen with an amniotic fluid index of 11.5 cm.
[2018-10-09] MEDS ORDERED: ROCEPHIN 1 Gm-D5w 50 ml Bag** 1 G/50 ML IVPB IV STA (14:35)
[2018-10-09] MEDS ORDERED: ROCEPHIN 1 Gm-D5w 50 ml Bag** 1 G/50 ML IVPB IV ONE (14:56)
[2018-10-09 14:59] VITALS: O2SAT 98
[2018-10-09 15:28] VITALS: BP 111/71; PULSE 98
[2018-10-09 17:12] LABS: CHLAMYDIA URINE NEGATIVE (NEGATIVE); GC URINE NEGATIVE (NEGATIVE)
== END 2018-10-09 15:45 | disposition home or self-care (01) ==
LOC: ED 12:10
DX: O23.42 Unspecified infection of urinary tract in pregnancy, second trimester (principal); Z3A.16 16 weeks gestation of pregnancy
CPT/HCPCS: 36000; 36415; 76805; 80053; 81001; 84702; 85025; 86850; 86900; 86901; 87086; 87491; 87591; 93005; 96360; 96365; 99284; J0696

== ENCOUNTER 2018-10-24 21:56 | Emergency (ER) | payer OTHER ==
[2018-10-24 22:15] VITALS: O2SAT 100
[2018-10-24] MEDS ORDERED: Sodium Chloride 0.9% 1000 ML 1,000 ML IV STA (22:30)
[2018-10-24] MEDS ORDERED: Sodium Chloride 0.9% 1000 ML 1,000 ML ONE (22:36)
[2018-10-24 22:39] LABS: BASOPHIL % 0.2 % (0.0-0.4); Basophil (Absolute #) 0.02 (0-0.4); Eosinophil % 1.4 % (0.00-5.0); Eosinophil (Absolute #) 0.18 (0-0.5); Granulocyte Absolute (ANC) 8.07 (1.4-6.9); Granulocytes % 63.1 % (36.0-66.0); Hematocrit 36.4 % (35-47); Hemoglobin 11.9 gm/dl (12.0-16.0); Lymphocyte (Absolute #) 3.88 (1.0-4.6); Lymphocytes % 30.3 % (24.0-44.0); Mean Cell Volume 83.1 fl (78-100); Mean Corpuscular Hgb Concent. 32.7 g/dl (32-36); Mean Platelet Volume 8.6 fl (6-9.5); Monocyte (Absolute #) 0.64 (0.0-1.3); Platelet Count 373 K/mm3 (150-450); Red Blood Count 4.38 M/mm3 (4.1-5.4); Red Cell Distribution Width 14.5 % (11.5-14.0); White Blood Count 12.8 K/mm3 (4.0-10.5)
[2018-10-24 22:46] LABS: Mean Corpuscular Hemoglobin 27.1 pg (26-32)
--- NOTE | 2018-10-24 22:48 | ERPHSYRPT ---
- History of Present Illness Time Seen by Provider: 10/24/18 22:15 Source: patient, other Patient Subjective Stated Complaint: pt is alert and oriented. pt is ambulatory with a steady gait. pt comes in with c/o palpitation, chest pain, and some nausea earlier today. pt is rating chest pain a 9/10. pt is not diaphoretic. pt skin is pwd. pt heart rate is 130 and regular. pt states she has a hx of a-fib but does not appear to be in a-fib at this time. pt radial pulses equal and strong. heart tones strong, fast and regular. pt denies shortness of breath. Triage Nursing Assessment: see above Physician History: PATIENT WITH A HISTORY OF TACHYCARDIA AND ATRIAL FIBRILLATION COMPLAINS OF PALPITATIONS INTERMITTENT FOR 6 MONTHS. DISCONTINUED HER HEART MEDIATION YEARS AGO. HAS BEEN NONCOMPLIANT WITH CARDIOLOGY FOLLOWUP. HAS OCCASIONAL PRESSURE SUBSTERNAL , DENIES DYSPNEA OR DIAPHORESIS. DENIES FEVER, CHILLS. Timing/Duration: week(s) Activities at Onset: none Quality: cramping, dullness Location: substernal Chest Pain Radiation: no radiation Severity of Pain-Max: mild Severity of Pain-Current: mild Modifying Factors: Improves With: exertion Nitro Today/Relief: no nitro taken today Aspirin Treatment Today: no aspirin today Associated Symptoms: other (PALPITATIONS) Allergies/Adverse Reactions: dicyclomine Allergy (Verified 10/09/18 12:40) Penicillins Allergy (Verified 10/09/18 12:40) Sulfa (Sulfonamide Antibiotics) Allergy (Verified 10/09/18 12:40) Home Medications: Pnv No.95/Ferrous Fum/Folic AC [ Vitamin Tablet] 1 each PO DAILY [History] Hx Tetanus, Diphtheria Vaccination/Date Given: Yes Hx Influenza Vaccination/Date Given: Yes Hx Pneumococcal Vaccination/Date Given: No Immunizations Up to Date: Yes - Review of Systems Constitutional: No Fever, No Chills Eyes: No Symptoms Ears, Nose, & Throat: No Symptoms Respiratory: No Symptoms, No Cough, No Dyspnea Cardiac: Chest Pain, No Edema, No Syncope Abdominal/Gastrointestinal: No Symptoms, Other (GRAVID), No Abdominal Pain, No Nausea, No Vomiting, No Diarrhea Genitourinary Symptoms: No Symptoms, No Dysuria Musculoskeletal: No Symptoms, No Back Pain, No Neck Pain Skin: No Rash Neurological: No Symptoms, No Dizziness, No Focal Weakness, No Sensory Changes Psychological: No Symptoms Endocrine: No Symptoms All Other Systems: Reviewed and Negative - Past Medical History Pertinent Past Medical History: Yes Neurological History: No Pertinent History ENT History: No Pertinent History Cardiac History: Other Respiratory History: Bronchitis Endocrine Medical History: No Pertinent History Musculoskeletal History: No Pertinent History GI Medical History: No Pertinent History History: No Pertinent History Psycho-Social History: Anxiety Female Reproductive Disorders: No Pertinent History Other Medical History: HEART MURMUR, TACHYCARDIA, A-FIB--no issues for 7-8 months - Past Surgical History Past Surgical History: Yes Neuro Surgical History: No Pertinent History Cardiac: No Pertinent History Respiratory: No Pertinent History Gastrointestinal: No Pertinent History Genitourinary: Kidney Surgery Musculoskeletal: No Pertinent History Female Surgical History: No Pertinent History Other Surgical History: kidney surgery as baby - Social History Smoking Status: Never smoker Exposure to second hand smoke: No Drug Use: none Patient Lives Alone: No - Female History Hx Now: Yes Expected Date of Delivery: 03/22/19 - Nursing Vital Signs Nursing Vital Signs: Initial Vital Signs Temperature 98.2 F 10/24/18 22:04 Pulse Rate 135 H 10/24/18 22:04 Respiratory Rate 18 10/24/18 22:04 Blood Pressure 162/82 10/24/18 22:04 O2 Sat by Pulse Oximetry 100 10/24/18 22:04 Pain Scale Pain Intensity 9 - Physical Exam General Appearance: no apparent distress, alert SpO2: 100 - Course EKG Interpreted by Me: RATE, Sinus Rhythm, Sinus Tach Ordered Tests: Active Orders 24 hr Category Date Time Status BMP Stat Lab 10/24/18 22:38 Completed CBC W DIFF Stat Lab 10/24/18 22:38 Completed HCG,QUALITATIVE URINE Stat Lab 10/24/18 22:31 Completed TROPONIN Q3H Lab 10/24/18 22:38 Completed TROPONIN Q3H Lab 10/25/18 01:30 Ordered TROPONIN Q3H Lab 10/25/18 04:30 Ordered TROPONIN Q3H Lab 10/25/18 07:30 Ordered TROPONIN Q3H Lab 10/25/18 10:30 Ordered UA W/RFX UR CULTURE Stat Lab 10/24/18 23:17 Completed Urine Triage Profile Stat Lab 10/24/18 22:31 Completed Medication Summary Discontinued Medications Generic Name Dose Route Start Last Admin Trade Name Freq PRN Reason Stop Dose Admin Sodium Chloride 1,000 mls @ 999 mls/hr 10/24/18 22:30 10/24/18 22:41 Sodium Chloride 0.9% 1000 Ml IV 10/24/18 23:30 999 mls/hr .Q1H1M STA Administration Sodium Chloride Confirm 10/24/18 22:36 Sodium Chloride 0.9% 1000 Ml Administered 10/24/18 22:37 Dose 1,000 mls @ ud .ROUTE .[facility] Lab/Rad Data: Laboratory Result Diagrams 10/24/18 22:38 10/24/18 22:38 Laboratory Results 10/24/18 10/24/18 10/24/18 Range/Units 23:17 22:38 22:38 WBC 12.8 H (4.0-10.5) K/mm3 RBC 4.38 (4.1-5.4) M/mm3 Hgb 11.9 L (12.0-16.0) gm/dl Hct 36.4 (35-47) % MCV 83.1 (78-100) fl MCH 27.1 (26-32) pg MCHC 32.7 (32-36) g/dl RDW 14.5 H (11.5-14.0) % Plt Count 373 (150-450) K/mm3 MPV 8.6 (6-9.5) fl Gran % 63.1 (36.0-66.0) % Eos # (Auto) 0.18 (0-0.5) Absolute Lymphs (auto) 3.88 (1.0-4.6) Absolute Monos (auto) 0.64 (0.0-1.3) Lymphocytes % 30.3 (24.0-44.0) % Monocytes % 5.0 (0.0-12.0) % Eosinophils % 1.4 (0.00-5.0) % Basophils % 0.2 (0.0-0.4) % Absolute Granulocytes 8.07 H (1.4-6.9) Basophils # 0.02 (0-0.4) Sodium 139 (137-145) mmol/L Potassium 3.4 L (3.5-5.1) mmol/L Chloride 105 (98-107) mmol/L Carbon Dioxide 25 (22-30) mmol/L Anion Gap 13.2 (5-15) MEQ/L BUN 9 (7-17) mg/dL Creatinine 0.55 (0.52-1.04) mg/dL Estimated GFR > 60.0 ML/MIN Glucose 126 H (74-106) mg/dL Calcium 9.5 (8.4-10.2) mg/dL Troponin I (0.000-0.034) ng/mL Urine Color YELLOW (YELLOW) Urine Appearance CLEAR (CLEAR) Urine pH 7.0 (5-6) Ur Specific [place] 1.008 (1.005-1.025) Urine Protein NEGATIVE (Negative) Urine Ketones NEGATIVE (NEGATIVE) Urine Blood NEGATIVE (0-5) Anthony/ul Urine Nitrite NEGATIVE (NEGATIVE) Urine Bilirubin NEGATIVE (NEGATIVE) Urine Urobilinogen NEGATIVE (0-1) mg/dL Ur Leukocyte Esterase NEGATIVE (NEGATIVE) Urine WBC (Auto) NONE (0-5) /HPF Urine RBC (Auto) NONE (0-2) /HPF U Epithel Cells (Auto) NONE (FEW) /HPF Urine Bacteria (Auto) NONE (NEGATIVE) /HPF Urine Culture Reflexed NO (NO) Urine Glucose NEGATIVE (NEGATIVE) mg/dL Urine HCG, Qual (Negative) Urine Opiates Level (NEGATIVE) Ur Methadone (NEGATIVE) Urine Barbiturates (NEGATIVE) Ur Phencyclidine (PCP) (NEGATIVE) Urine Amphetamine (NEGATIVE) U Benzodiazepine Level (NEGATIVE) Urine Cocaine (NEGATIVE) Urine Marijuana (THC) (NEGATIVE) 10/24/18 10/24/18 10/24/18 Range/Units 22:38 22:31 22:31 WBC (4.0-10.5) K/mm3 RBC (4.1-5.4) M/mm3 Hgb (12.0-16.0) gm/dl Hct (35-47) % MCV (78-100) fl MCH (26-32) pg MCHC (32-36) g/dl RDW (11.5-14.0) % Plt Count (150-450) K/mm3 MPV (6-9.5) fl Gran % (36.0-66.0) % Eos # (Auto) (0-0.5) Absolute Lymphs (auto) (1.0-4.6) Absolute Monos (auto) (0.0-1.3) Lymphocytes % (24.0-44.0) % Monocytes % (0.0-12.0) % Eosinophils % (0.00-5.0) % Basophils % (0.0-0.4) % Absolute Granulocytes (1.4-6.9) Basophils # (0-0.4) Sodium (137-145) mmol/L Potassium (3.5-5.1) mmol/L Chloride (98-107) mmol/L Carbon Dioxide (22-30) mmol/L Anion Gap (5-15) MEQ/L BUN (7-17) mg/dL Creatinine (0.52-1.04) mg/dL Estimated GFR ML/MIN Glucose (74-106) mg/dL Calcium (8.4-10.2) mg/dL Troponin I < 0.012 (0.000-0.034) ng/mL Urine Color (YELLOW) Urine Appearance (CLEAR) Urine pH (5-6) Ur Specific [place] (1.005-1.025) Urine Protein (Negative) Urine Ketones (NEGATIVE) Urine Blood (0-5) Anthony/ul Urine Nitrite (NEGATIVE) Urine Bilirubin (NEGATIVE) Urine Urobilinogen (0-1) mg/dL Ur Leukocyte Esterase (NEGATIVE) Urine WBC (Auto) (0-5) /HPF Urine RBC (Auto) (0-2) /HPF U Epithel Cells (Auto) (FEW) /HPF Urine Bacteria (Auto) (NEGATIVE) /HPF Urine Culture Reflexed (NO) Urine Glucose (NEGATIVE) mg/dL Urine HCG, Qual POSITIVE (Negative) Urine Opiates Level NEGATIVE (NEGATIVE) Ur Methadone NEGATIVE (NEGATIVE) Urine Barbiturates NEGATIVE (NEGATIVE) Ur Phencyclidine (PCP) NEGATIVE (NEGATIVE) Urine Amphetamine NEGATIVE (NEGATIVE) U Benzodiazepine Level NEGATIVE (NEGATIVE) Urine Cocaine NEGATIVE (NEGATIVE) Urine Marijuana (THC) NEGATIVE (NEGATIVE) - Progress Counseled pt/family regarding: lab results, diagnosis, need for follow-up - Departure Departure Disposition: Home Clinical Impression: TACHYCARDIA Condition: Stable Critical Care Time: No Referrals: CALVIN DELANEY [Primary Care Provider] - Additional Instructions: CONSULT YOUR [employer] SUPERVISOR FOR EVALUATION AND TREATMENT. CONTINUE ALL CURRENT MEDICADICATION. RETURN TO EMERGENDY PERSISTENT SYMPTOMS
[2018-10-24 22:52] LABS: ANION GAP 13.2 MEQ/L (5-15); BLOOD UREA NITROGEN 9 mg/dL (7-17); CHLORIDE 105 mmol/L (98-107); Calcium 9.5 mg/dL (8.4-10.2); Carbon Dioxide 25 mmol/L (22-30); Creatinine 1 0.55 mg/dL (0.52-1.04); Glucose 126 mg/dL (74-106); Potassium 3.4 mmol/L (3.5-5.1); SODIUM 139 mmol/L (137-145)
[2018-10-24 23:24] LABS: Amphetamine,Urine NEGATIVE (NEGATIVE); Barbiturate,Urine NEGATIVE (NEGATIVE); Benzodiazepine,Urine NEGATIVE (NEGATIVE); Cocaine,Urine NEGATIVE (NEGATIVE); Methadone,Urine NEGATIVE (NEGATIVE); Opiate,Urine NEGATIVE (NEGATIVE); PCP,Urine NEGATIVE (NEGATIVE); THC,Urine NEGATIVE (NEGATIVE)
[2018-10-24 23:38] LABS: Appearance CLEAR (CLEAR); Bilirubin NEGATIVE (NEGATIVE); Blood NEGATIVE Ery/ul (0-5); Glucose NEGATIVE (NEGATIVE); Ketones NEGATIVE (NEGATIVE); Leukocyte Esterase NEGATIVE (NEGATIVE); Nitrite NEGATIVE (NEGATIVE); Protein,Urine Dip NEGATIVE (Negative); Specific Gravity 1.008 (1.005-1.025); Urobilinogen NEGATIVE mg/dL (0-1)
[2018-10-24 23:54] VITALS: BP 119/79; PULSE 108
== END 2018-10-25 00:38 | disposition home or self-care (01) ==
LOC: ED 21:56
DX: R00.0 Tachycardia, unspecified (principal)
CPT/HCPCS: 36415; 80048; 80307; 81001; 84484; 84703; 85025; 96360; 99284

== ENCOUNTER 2019-09-14 15:42 | Emergency (ER) | payer OTHER ==
--- NOTE | 2019-09-14 16:51 | ERPHSYRPT ---
- History of Present Illness Time Seen by Provider: 09/14/19 16:17 Source: patient Exam Limitations: no limitations Patient Subjective Stated Complaint: R shoulder and R heel pain Triage Nursing Assessment: pt to ED c/o R shoulder x 3 days and R heel pain x 1 month. 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 pt ambulatory without assistance. full ROM with upper and lower R extremities. no loss sensation to either, cap refil < 3 sec for both upper and lower, no obvious deformities noted, denies any trauma. rates 10/10 pain that does not radiate. has taken ibuprofen at home x 2 days as well as applied cold and heat therapies with no relief. Physician History: Old presented in the ER with chief complaint of right side neck, upper back pain and right heel pain. Back and neck pain is going on for the last 2 days, moderate intensity, dull aching to sharp in nature, aggravated with movements at shoulder and is unable to move her neck and right because of worsening pain. Denies any fall trauma, pulling or pushing heavy stuff. Pain is better partially with taking [id number] pain medication and resting. No difficulty breathing or chest pain. Patient is also complaining of 2-month history of right heel pain which is more with ambulation/weightbearing but has no fall or trauma. Timing/Duration: day(s) Severity: moderate Modifying Factors: Improves With: movement, acetaminophen, ibuprofen Associated Symptoms: denies symptoms Allergies/Adverse Reactions: dicyclomine Allergy (Verified 10/09/18 12:40) Penicillins Allergy (Verified 10/09/18 12:40) Sulfa (Sulfonamide Antibiotics) Allergy (Verified 10/09/18 12:40) Home Medications: Pnv No.95/Ferrous Fum/Folic AC [ Vitamin Tablet] 1 each PO DAILY [History] Hx Tetanus, Diphtheria Vaccination/Date Given: Yes Hx Influenza Vaccination/Date Given: Yes Hx Pneumococcal Vaccination/Date Given: No Immunizations Up to Date: Yes Travel Risk - International Travel Have you traveled outside of the country in past 3 weeks: No - Coronavirus Screening Are you exhibiting any of the following symptoms?: No Close contact with a COVID-19 positive Pt in past 14-21 Days: No - Review of Systems Constitutional: No Symptoms Eyes: No Symptoms Ears, Nose, & Throat: No Symptoms Respiratory: No Symptoms Cardiac: No Symptoms Abdominal/Gastrointestinal: No Symptoms Musculoskeletal: Back Pain, Neck Pain, Joint Pain Skin: No Symptoms Neurological: No Symptoms Psychological: No Symptoms Endocrine: No Symptoms Hematologic/Lymphatic: No Symptoms Immunological/Allergic: No Symptoms - Past Medical History Pertinent Past Medical History: Yes Neurological History: No Pertinent History ENT History: No Pertinent History Cardiac History: Other Respiratory History: Bronchitis Endocrine Medical History: No Pertinent History Musculoskeletal History: No Pertinent History GI Medical History: No Pertinent History History: No Pertinent History Psycho-Social History: Anxiety Female Reproductive Disorders: No Pertinent History Other Medical History: HEART MURMUR, TACHYCARDIA, A-FIB--no issues for 7-8 months - Past Surgical History Past Surgical History: Yes Neuro Surgical History: No Pertinent History Cardiac: No Pertinent History Respiratory: No Pertinent History Gastrointestinal: No Pertinent History Genitourinary: Kidney Surgery Musculoskeletal: No Pertinent History Female Surgical History: Section Other Surgical History: kidney surgery as baby - Social History Smoking Status: Never smoker Exposure to second hand smoke: No Drug Use: none Patient Lives Alone: No - Female History Hx Last Menstrual Period: 08/24/2019 Hx Now: Yes - Nursing Vital Signs Nursing Vital Signs: Initial Vital Signs Temperature 98.2 F 09/14/19 15:56 Pulse Rate 95 H 09/14/19 15:56 Respiratory Rate 20 09/14/19 15:56 Blood Pressure 119/75 09/14/19 15:56 O2 Sat by Pulse Oximetry 98 09/14/19 15:56 Pain Scale Pain Intensity 0 - Physical Exam General Appearance: no apparent distress Eye Exam: PERRL/EOMI, eyes nml inspection Ears, Nose, Throat Exam: normal ENT inspection, TMs normal, pharynx normal Neck Exam: normal inspection, supple, No full range of motion (Right side of the neck and upper paraspinal area. No midline tenderness at all. Restricted movements on the right because of pain right side neck and upper back. Pain is also reproducible with movements of right shoulder.) Respiratory Exam: normal breath sounds, lungs clear Cardiovascular Exam: regular rate/rhythm, normal heart sounds Gastrointestinal/Abdomen Exam: soft Extremity Exam: normal inspection, normal range of motion, pelvis stable, tenderness (Right heel which is reproducible with flexion.), other Neurologic Exam: alert, oriented x 3, cooperative Skin Exam: normal color SpO2 Interpretation: normal SpO2: 98 O2 Delivery: Room Air - Course Nursing assessment & vital signs reviewed: Yes Ordered Tests: Active Orders 24 hr Category Date Time Status FOOT (MINIMUM 3 VIEWS) Stat Exams 09/14/19 16:43 Taken HCG,QUALITATIVE URINE Stat Lab 09/14/19 18:15 Completed Medication Summary Discontinued Medications Generic Name Dose Route Start Last Admin Trade Name [place] PRN Reason Stop Dose Admin Acetaminophen 1,000 mg 09/14/19 18:02 09/14/19 18:06 Tylenol Extra Strength 500 Mg PO 09/14/19 18:03 1,000 mg STAT STA Administration Acetaminophen Confirm 09/14/19 18:05 Tylenol Extra Strength 500 Mg Administered 09/14/19 18:06 Dose 1,000 mg .ROUTE .[facility] Lab/Rad Data: Laboratory Results 09/14/19 Range/Units 18:15 Urine HCG, Qual NEGATIVE (Negative) - Progress Progress: improved Progress Note: 09/14/19 18:43 She is offered Toradol and Norflex which patient refused as she is breast- feeding. She is given Tylenol here, on reevaluation mild improvement in pain. She has clearly reproducible pain and muscle spasm in the upper back/neck, recommended taking Tylenol. I have obtained x-rays of her right foot which is negative for any spur/fracture dislocation. I believe patient has plantar fasciitis. Recommended stretching exercises and outpatient follow-up. At this point patient is stable for discharge, I do not think she needs chest x-ray or any other work-up as it is clearly muscular. Counseled pt/family regarding: lab results, diagnosis, need for follow-up, rad results - Departure Departure Disposition: Home Clinical Impression: Back muscle spasm, Plantar fasciitis of right foot Condition: Stable Critical Care Time: No Referrals: LAINEY SLOAN MD [Primary Care Provider] - (1-2 days for reevaluation) Instructions: Plantar Fasciitis Exercises, Muscle Spasms (DC) Additional Instructions: Take Tylenol as needed. Follow-up plantar fasciitis exercises. Follow-up with primary care for reevaluation. Return to ER for any worsening.
[2019-09-14] MEDS ORDERED: TYLENOL EXTRA STRENGTH 500 MG PO STA (18:02)
[2019-09-14] MEDS ORDERED: TYLENOL EXTRA STRENGTH 500 MG ONE (18:05)
[2019-09-14 18:13] VITALS: BP 132/78; PULSE 89
[2019-09-14 18:46] VITALS: O2SAT 98
--- NOTE | 2019-09-14 21:29 | XRAY ---
Indication: Heel pain. No known injury. Comparison: None 3 nonweightbearing views right foot obtained. No bony, articular, or soft tissue abnormalities.
== END 2019-09-14 19:04 | disposition home or self-care (01) ==
LOC: ED 15:42
DX: M62.830 Muscle spasm of back (principal); M25.511 Pain in right shoulder; M79.671 Pain in right foot; M72.2 Plantar fascial fibromatosis
CPT/HCPCS: 73630; 84703; 99283; A9270-GY

== ENCOUNTER 2021-06-16 15:59 | Emergency (ER) | payer OTHER | END 2021-06-16 17:35 | disposition left against medical advice (07) | LOC: ED 15:59 | DX: Z53.21 Procedure and treatment not carried out due to patient leaving prior to being seen by health care provider (principal) | CPT/HCPCS: 99281 ==

== ENCOUNTER 2022-01-05 11:40 | Emergency (ER) | payer OTHER ==
[2022-01-05] MEDS ORDERED: PROTONIX 40 MG IV IV ONE ×2 (11:58→12:11)
[2022-01-05] MEDS ORDERED: Sodium Chloride 0.9% 1000 ML 1,000 ML IV STA (11:58)
[2022-01-05] MEDS ORDERED: Zofran 4 MG/2 ML VIAL IV ONE (11:58)
--- NOTE | 2022-01-05 12:10 | ERPHSYRPT ---
- History of Present Illness Time Seen by Provider: 01/05/22 12:00 Historian: patient Exam Limitations: no limitations Patient Subjective Stated Complaint: pt here for epigastric pain for 3 days now, vomiting since yesterday, no fever Triage Nursing Assessment: pt alert, resp easy,skin w/d/p. face mask in place, pain to epigastric area that radiates to back, no edema noted Physician History: Patient a 26-year-old female presents to emergency department for evaluation of intermittent epigastric and right upper quadrant pain. Symptoms started 3 days ago. Symptoms have been intermittent. Pain tends to radiate towards her back. Patient rates her pain 9 out of 10. No trauma. No fever. Patient's family has a history of cholelithiasis/cholecystitis. Patient concerned that she may have an inflamed gallbladder. Symptoms are moderate in intensity. Patient declined pain medication. Patient states that she is experiencing mostly nausea at this time. Patient denies history of the same. She voices no other complaints or concerns at this time. Portions of this note were created with voice recognition technology. There may be grammatical, spelling, punctuation or sound alike errors Timing/Duration: yesterday Activities at Onset: none Quality: aching Abdominal Pain Onset Location: RUQ, epigastric Pain Radiation: no radiation Severity of Pain-Max: moderate Severity of Pain-Current: mild Modifying Factors: Improves With: nothing Associated Symptoms: denies symptoms Previous symptoms: no prior history Allergies/Adverse Reactions: dicyclomine Allergy (Verified 01/05/22 11:51) Penicillins Allergy (Verified 01/05/22 11:51) Sulfa (Sulfonamide Antibiotics) Allergy (Verified 01/05/22 11:51) Home Medications: Sertraline HCl [Zoloft] 100 mg PO DAILY 01/05/22 [History] Hx Tetanus, Diphtheria Vaccination/Date Given: Yes Hx Influenza Vaccination/Date Given: No Hx Pneumococcal Vaccination/Date Given: No Immunizations Up to Date: Yes Travel Risk - International Travel Have you traveled outside of the country in past 3 weeks: No - Coronavirus Screening Are you exhibiting any of the following symptoms?: No Close contact with a COVID-19 positive Pt in past 14-21 Days: No - Vaccine Status Have you recieved a Covid-19 vaccination: No - Review of Systems Constitutional: No Symptoms, No Fever, No Chills Eyes: No Symptoms Ears, Nose, & Throat: No Symptoms Respiratory: No Symptoms, No Cough, No Dyspnea Cardiac: No Symptoms, No Chest Pain, No Edema, No Syncope Abdominal/Gastrointestinal: No Symptoms, No Abdominal Pain, No Nausea, No Vomiting, No Diarrhea Genitourinary Symptoms: No Symptoms, No Dysuria Musculoskeletal: No Symptoms, No Back Pain, No Neck Pain Skin: No Symptoms, No Rash Neurological: No Symptoms, No Dizziness, No Focal Weakness, No Sensory Changes Psychological: No Symptoms Endocrine: No Symptoms Hematologic/Lymphatic: No Symptoms Immunological/Allergic: No Symptoms All Other Systems: Reviewed and Negative - Past Medical History Pertinent Past Medical History: Yes Neurological History: No Pertinent History ENT History: No Pertinent History Cardiac History: Other Respiratory History: Bronchitis Endocrine Medical History: No Pertinent History Musculoskeletal History: No Pertinent History GI Medical History: No Pertinent History History: No Pertinent History Psycho-Social History: Anxiety Female Reproductive Disorders: No Pertinent History Other Medical History: HEART MURMUR, TACHYCARDIA, A-FIB--no issues for 7-8 months - Past Surgical History Past Surgical History: Yes Neuro Surgical History: No Pertinent History Cardiac: No Pertinent History Respiratory: No Pertinent History Gastrointestinal: No Pertinent History Genitourinary: Kidney Surgery Musculoskeletal: No Pertinent History Female Surgical History: Section Other Surgical History: kidney surgery as baby - Social History Smoking Status: Never smoker Exposure to second hand smoke: No Drug Use: none Patient Lives Alone: No - Female History Hx Last Menstrual Period: dec Hx Now: No (unsure) - Nursing Vital Signs Nursing Vital Signs: Initial Vital Signs Temperature 97.8 F 01/05/22 11:50 Pulse Rate 100 H 01/05/22 11:50 Respiratory Rate 18 01/05/22 11:50 Blood Pressure 111/60 01/05/22 11:50 O2 Sat by Pulse Oximetry 98 01/05/22 11:50 Pain Scale Pain Intensity 8 - Physical Exam General Appearance: no apparent distress, alert Eye Exam: PERRL/EOMI, eyes nml inspection Ears, Nose, Throat Exam: normal ENT inspection, TMs normal, pharynx normal, moist mucous membranes Neck Exam: normal inspection, non-tender, supple, full range of motion Respiratory Exam: normal breath sounds, lungs clear, airway intact, No r espiratory distress Cardiovascular Exam: regular rate/rhythm, normal heart sounds, normal peripheral pulses Gastrointestinal/Abdomen Exam: soft, normal bowel sounds, No tenderness, No mass, No guarding Back Exam: normal inspection, normal range of motion, No CVA tenderness, No vertebral tenderness Extremity Exam: normal inspection, normal range of motion, pelvis stable Neurologic Exam: alert, oriented x 3, cooperative, normal mood/affect, nml cerebellar function, sensation nml, No motor deficits Skin Exam: normal color, warm, dry Lymphatic Exam: No adenopathy SpO2 Interpretation: normal SpO2: 98 O2 Delivery: Room Air - Course Nursing assessment & vital signs reviewed: Yes - Radiology Ultrasound Exam Gallbladder Ultrasound: tele radiology report (Gallbladder ultrasound reveals a liver lesion. The liver lesion is of unclear source. Possible hemangioma possible adenoma. This will require further work-up) Ordered Tests: Active Orders 24 hr Category Date Time Status IV Insertion STAT Care 01/05/22 11:58 Active ABDOMEN AND PELVIS W/0 CONTRAS [CT] Stat Exams 01/05/22 11:58 Completed GALLBLADDER [US] Stat Exams 01/05/22 12:00 Completed CBC W DIFF Stat Lab 01/05/22 12:35 Completed CMP Stat Lab 01/05/22 11:58 Completed HCG,QUALITATIVE URINE Stat Lab 01/05/22 12:08 Completed LIPASE Stat Lab 01/05/22 11:58 Completed TROPONIN Q4H Lab 01/05/22 12:35 Completed TROPONIN Q4H Lab 01/05/22 16:00 Ordered TROPONIN Q4H Lab 01/05/22 20:00 Ordered UA W/RFX CULTURE Stat Lab 01/05/22 12:10 Completed Medication Summary Discontinued Medications Generic Name Dose Route Start Last Admin Trade Name [place] PRN Reason Stop Dose Admin Sodium Chloride 1,000 mls @ 999 mls/hr 01/05/22 11:58 01/05/22 13:36 Sodium Chloride 0.9% 1000 Ml IV 01/05/22 12:58 Infused .Q1H1M STA Infusion Sodium Chloride Confirm 01/05/22 12:11 Sodium Chloride 0.9% 1000 Ml Administered 01/05/22 12:12 Dose 1,000 mls @ ud .ROUTE .STK-MED ONE Ondansetron HCl 4 mg 01/05/22 11:58 01/05/22 12:17 Ondansetron Hcl 4 Mg/2 Ml Vial IV 01/05/22 11:59 4 mg STAT ONE Administration Ondansetron HCl Confirm 01/05/22 12:11 Ondansetron Hcl 4 Mg/2 Ml Vial Administered 01/05/22 12:12 Dose 4 mg .ROUTE .STK-MED ONE Pantoprazole Sodium 40 mg 01/05/22 11:58 01/05/22 12:17 Pantoprazole 40 Mg Vial IV 01/05/22 11:59 40 mg STAT ONE Administration Pantoprazole Sodium Confirm 01/05/22 12:11 Pantoprazole 40 Mg Vial Administered 01/05/22 12:12 Dose 40 mg IV .STK-MED ONE Lab/Rad Data: Laboratory Result Diagrams 01/05/22 12:35 01/05/22 11:58 Laboratory Results 01/05/22 01/05/22 01/05/22 Range/Units 12:35 12:35 12:10 WBC 9.1 (4.0-10.5) x10^3/uL RBC 4.45 (4.1-5.4) x10^6/uL Hgb 11.3 L (12.0-16.0) g/dL Hct 37.0 (35-47) % MCV 83.1 (78-100) fL MCH 25.4 L (26-32) pg MCHC 30.5 L (32-36) g/dL RDW 14.1 H (11.5-14.0) % Plt Count 309 (150-450) x10^3/uL MPV 8.7 (7.5-11.0) fL Gran % 63.7 (36.0-66.0) % Immature Gran % (Auto) 0.4 (0.00-0.4) % Nucleat RBC Rel Count 0.0 (0.00-0.1) % Eos # (Auto) 0.16 (0-0.5) x10^3/uL Immature Gran # (Auto) 0.04 H (0.00-0.03) x10^3u/L Absolute Lymphs (auto) 2.64 (1.0-4.6) x10^3/uL Absolute Monos (auto) 0.42 (0.0-1.3) x10^3/uL Absolute Nucleated RBC 0.00 (0.00-0.01) x10^3u/L Lymphocytes % 29.1 (24.0-44.0) % Monocytes % 4.6 (0.0-12.0) % Eosinophils % 1.8 (0.00-5.0) % Basophils % 0.4 (0.0-0.4) % Absolute Granulocytes 5.77 (1.4-6.9) x10^3/uL Basophils # 0.04 (0-0.4) x10^3/uL Sodium (137-145) mmol/L Potassium (3.5-5.1) mmol/L Chloride (98-107) mmol/L Carbon Dioxide (22-30) mmol/L Anion Gap (5-15) MEQ/L BUN (7-17) mg/dL Creatinine (0.52-1.04) mg/dL Estimated GFR ML/MIN Glucose (74-106) mg/dL Calcium (8.4-10.2) mg/dL Total Bilirubin (0.2-1.3) mg/dL AST (14-36) U/L ALT (0-35) U/L Alkaline Phosphatase (38-126) U/L Troponin I < 0.012 (0.000-0.034) ng/mL Serum Total Protein (6.3-8.2) g/dL Albumin (3.5-5.0) g/dL Lipase (23-300) U/L Urinalys Dipstick Clnc MAIN LAB Urine Color YELLOW (YELLOW) Urine Appearance CLEAR (CLEAR) Urine pH 6.0 (5-6) Ur Specific [place] 1.020 (1.005-1.025) POC Urine Protein Conf NEGATIVE (Negative) Urine Ketones NEGATIVE (NEGATIVE) Urine Nitrite NEGATIVE (NEGATIVE) Urine Bilirubin NEGATIVE (NEGATIVE) Urine Urobilinogen 0.2 (0-1) mg/dL Urine Leukocytes NEGATIVE (NEGATIVE) Urine WBC (Auto) 3-5 (0-5) /HPF Urine RBC (Auto) NONE (0-2) /HPF U Epithel Cells (Auto) RARE (FEW) /HPF Urine Bacteria (Auto) NONE (NEGATIVE) /HPF Urine RBC NEGATIVE (0-5) Anthony/ul Ur Culture Indicated? NO Urine Glucose NEGATIVE (NEGATIVE) mg/dL Urine HCG, Qual (Negative) 01/05/22 01/05/22 Range/Units 12:08 11:58 WBC (4.0-10.5) x10^3/uL RBC (4.1-5.4) x10^6/uL Hgb (12.0-16.0) g/dL Hct (35-47) % MCV (78-100) fL MCH (26-32) pg MCHC (32-36) g/dL RDW (11.5-14.0) % Plt Count (150-450) x10^3/uL MPV (7.5-11.0) fL Gran % (36.0-66.0) % Immature Gran % (Auto) (0.00-0.4) % Nucleat RBC Rel Count (0.00-0.1) % Eos # (Auto) (0-0.5) x10^3/uL Immature Gran # (Auto) (0.00-0.03) x10^3u/L Absolute Lymphs (auto) (1.0-4.6) x10^3/uL Absolute Monos (auto) (0.0-1.3) x10^3/uL Absolute Nucleated RBC (0.00-0.01) x10^3u/L Lymphocytes % (24.0-44.0) % Monocytes % (0.0-12.0) % Eosinophils % (0.00-5.0) % Basophils % (0.0-0.4) % Absolute Granulocytes (1.4-6.9) x10^3/uL Basophils # (0-0.4) x10^3/uL Sodium 139 (137-145) mmol/L Potassium 3.8 (3.5-5.1) mmol/L Chloride 102 (98-107) mmol/L Carbon Dioxide 27 (22-30) mmol/L Anion Gap 13.6 (5-15) MEQ/L BUN 14 (7-17) mg/dL Creatinine 0.84 (0.52-1.04) mg/dL Estimated GFR > 60.0 ML/MIN Glucose 108 H (74-106) mg/dL Calcium 8.8 (8.4-10.2) mg/dL Total Bilirubin 0.30 (0.2-1.3) mg/dL AST 18 (14-36) U/L ALT 22 (0-35) U/L Alkaline Phosphatase 73 (38-126) U/L Troponin I (0.000-0.034) ng/mL Serum Total Protein 7.5 (6.3-8.2) g/dL Albumin 4.1 (3.5-5.0) g/dL Lipase 69 (23-300) U/L Urinalys Dipstick Clnc Urine Color (YELLOW) Urine Appearance (CLEAR) Urine pH (5-6) Ur Specific [place] (1.005-1.025) POC Urine Protein Conf (Negative) Urine Ketones (NEGATIVE) Urine Nitrite (NEGATIVE) Urine Bilirubin (NEGATIVE) Urine Urobilinogen (0-1) mg/dL Urine Leukocytes (NEGATIVE) Urine WBC (Auto) (0-5) /HPF Urine RBC (Auto) (0-2) /HPF U Epithel Cells (Auto) (FEW) /HPF Urine Bacteria (Auto) (NEGATIVE) /HPF Urine RBC (0-5) Anthony/ul Ur Culture Indicated? Urine Glucose (NEGATIVE) mg/dL Urine HCG, Qual NEGATIVE (Negative) - Progress Progress: improved Progress Note: Patient reassessed. She is well. No active pain at this time. Work-up reveals a liver lesion of unclear etiology. Adenoma versus hemangioma. This will require further work-up as an outpatient. CAT scan reveals fecal stasis. There is some small physiologic fluid in the cul-de-sac. No gallstones observed. No indication for further work-up at this time. Patient is comfortable she declined pain medication. Will discharge. Patient agrees to follow-up as an outpatient for further evaluation and treatment regarding her pain as well as the liver lesion that will require further imaging studies. Portions of this note were created with voice recognition technology. There may be grammatical, spelling, punctuation or sound alike errors 01/05/22 14:29 Counseled pt/family regarding: lab results, diagnosis, need for follow-up, rad results - Departure Departure Disposition: Home Clinical Impression: Liver lesion, fecal stasis, Abdominal pain, Physiologic cul-de-sac fluid Condition: Stable Critical Care Time: No Referrals: BRENDON LEE MD [Primary Care Provider] - Follow up/PCP as directed Additional Instructions: A liver lesion was observed on today's ultrasound of your gallbladder and liver. This will require further work-up and evaluation for further identification. Please follow-up with your family doctor to obtain further imaging studies jay luation of this lesion. Discharge/Care Plan VASQUEZKATERINA JOSE was seen on 01/05/22 in the Emergency Room. The patient was counseled regarding Diagnosis,Lab results, Imaging studies, need for follow up and when to return to the Emergency Room. Prescriptions given: Discharge Note I have spoken with the patient and/or caregivers. I have explained the patient's condition, diagnosis and treatment plan based on the information available to me at this time. I have answered the patient's and/or caregiver's questions and addressed any concerns. The patient and/or caregivers have as good understanding of the patient's diagnosis, condition and treatment plan as can be expected at this point. The vital signs have been stable. The patient's condition is stable and appropriate for discharge from the emergency department. The patient will pursue further outpatient evaluation with the primary care physician or other designated or consulting physician as outlined in the dischar ge instructions. The patient and/or caregivers are agreeable to this plan of care and follow-up instructions have been explained in detail. The patient and/or caregivers have received these instruction. The patient/and or caregivers are aware that any significant change in condition or worsening of symptoms should prompt an immediate return to this or the closest emergency department or call 911.
[2022-01-05] MEDS ORDERED: Zofran 4 MG/2 ML VIAL ONE (12:11)
[2022-01-05] MEDS ORDERED: Sodium Chloride 0.9% 1000 ML 1,000 ML ONE (12:11)
[2022-01-05 12:49] LABS: Appearance CLEAR (CLEAR); Bilirubin NEGATIVE (NEGATIVE); Dipstick done @ ? MAIN LAB; Glucose NEGATIVE (NEGATIVE); Ketones NEGATIVE (NEGATIVE); Nitrite NEGATIVE (NEGATIVE); Protein,Urine Dip NEGATIVE (Negative); RBC NEGATIVE Ery/ul (0-5); Urobilinogen 0.2 mg/dL (0-1)
[2022-01-05 12:49] LABS: Absolute Neutrophil Ct (ANC) 5.77 x10^3/uL (1.4-6.9); Basophil (Absolute #) 0.04 x10^3/uL (0-0.4); Eosinophil % 1.8 % (0.00-5.0); Eosinophil (Absolute #) 0.16 x10^3/uL (0-0.5); Hemoglobin 11.3 g/dL (12.0-16.0); Lymphocyte (Absolute #) 2.64 x10^3/uL (1.0-4.6); Lymphocytes % 29.1 % (24.0-44.0); Mean Cell Volume 83.1 fL (78-100); Mean Corpuscular Hemoglobin 25.4 pg (26-32); Mean Corpuscular Hgb Concent. 30.5 g/dL (32-36); Mean Platelet Volume 8.7 fL (7.5-11.0); Monocyte (Absolute #) 0.42 x10^3/uL (0.0-1.3); Monocytes % 4.6 % (0.0-12.0); Neutrophil % 63.7 % (36.0-66.0); Platelet Count 309 x10^3/uL (150-450); Red Blood Count 4.45 x10^6/uL (4.1-5.4); Red Cell Distribution Width 14.1 % (11.5-14.0); White Blood Count 9.1 x10^3/uL (4.0-10.5)
[2022-01-05 13:01] LABS: ALBUMIN 4.1 g/dL (3.5-5.0); ALKALINE PHOSPHATASE 73 U/L (38-126); ANION GAP 13.6 MEQ/L (5-15); BLOOD UREA NITROGEN 14 mg/dL (7-17); CHLORIDE 102 mmol/L (98-107); Calcium 8.8 mg/dL (8.4-10.2); Carbon Dioxide 27 mmol/L (22-30); Creatinine 1 0.84 mg/dL (0.52-1.04); EST GLOMERULAR FILTRATION RATE > 60.0 ML/MIN; Glucose 108 mg/dL (74-106); LIPASE 69 U/L (23-300); Potassium 3.8 mmol/L (3.5-5.1); SGOT/AST 18 U/L (14-36); SGPT/ALT 22 U/L (0-35); SODIUM 139 mmol/L (137-145); Total Protein 7.5 g/dL (6.3-8.2)
[2022-01-05 13:01] LABS: Epithelial Cells RARE /HPF (FEW)
--- NOTE | 2022-01-05 13:27 | XRAY ---
Indication: Right upper quadrant pain. Two-dimensional gallbladder sonogram performed. Comparison: None Visualized gallbladder normally distended without gallstones, wall thickening, or pericholecystic fluid. Common bile duct measures 4.1 mm. No intrahepatic biliary distention. Right lobe liver demonstrates a 4.9 x 3.0 x 3.9 cm indeterminant hypoechogenic lesion anteriorly demonstrating color Doppler flow. Remaining liver homogeneous in echogenicity. No ascites. Remaining visualized liver and right kidney sonographically unremarkable. Right kidney measures 11.7 cm in length. Impression: 1. Indeterminant hepatic hypoechogenic lesion as detailed. In this demographic, hemangioma and hepatic adenoma offered for clinical consideration. 2. Remaining gallbladder sonogram is negative.
--- NOTE | 2022-01-05 13:31 | XRAY ---
Indication: Epigastric pain. Nausea and vomiting. Multiple contiguous images obtained through the abdomen and pelvis without contrast. Imperson: July 24, 2016 Lung bases clear. Heart not enlarged. Stomach is mildly distended with fluid/fluid. Noncontrasted stomach and bowel loops nonobstructed with normal appendix. New mild diffuse fecal stasis. Again small cul-de-sac fluid more then before presumed physiologic from rupture/leaking cyst. No free air. Remaining liver, gallbladder, pancreas, spleen, adrenal glands, kidneys, ureters, bladder, uterus, and aorta are unremarkable for noncontrast exam. Osseous structures intact again with incidental L3/L4 limbus vertebrae. Impression: 1. Again small physiologic cul-de-sac fluid. 2. New mild diffuse fecal stasis. 3. Remaining CT abdomen/pelvis without contrast exam is again negative.
[2022-01-05 13:36] LABS: Urine Cultured Indicated? NO
[2022-01-05 14:30] VITALS: O2SAT 98
[2022-01-05 14:43] VITALS: BP 118/68; PULSE 84
== END 2022-01-05 14:46 | disposition home or self-care (01) ==
LOC: ED 11:40
DX: K76.9 Liver disease, unspecified (principal); K59.89 Other specified functional intestinal disorders; R18.8 Other ascites; R10.13 Epigastric pain; R10.11 Right upper quadrant pain; R11.0 Nausea; Z79.899 Other long term (current) drug therapy; Z28.310 Unvaccinated for COVID-19
CPT/HCPCS: 36000; 36415; 74176; 76705; 80053; 81015; 81025; 83690; 84484; 85025; 96360; 96374; 96375; 99284; J2405

== ENCOUNTER 2022-01-10 21:37 | Emergency (ER) | payer OTHER | END 2022-01-11 00:25 | disposition left against medical advice (07) | LOC: ED 21:37 | DX: Z53.21 Procedure and treatment not carried out due to patient leaving prior to being seen by health care provider (principal) ==